=== PATIENT | female | born 1975 | race Caucasian/White ===

== ENCOUNTER 2021-08-15 13:39 | Emergency (ER) | payer MEDICAID, SELFPAY ==
[2021-08-15 13:44] VITALS: BP 157/98; PULSE 84; RESP 16; TEMP 36.9; O2SAT 98; BMI 32.4
--- NOTE | 2021-08-15 14:02 | ED_ITS ---
HPI - Dental/Oral General: Chief complaint: Dental/Oral Stated complaint: Mouth and gum pain Time Seen by Provider: 08/15/21 13:48 History of Present Illness: Patient is a 46-year-old female comes to the ED with dental pain. Pain started several days ago. She has had this dental pain before and has not seen a dentist for yet. Pain is in the right upper and lower side of mouth. Pain rated a 7 out of 10. She is new to the area and is currently in the process of getting set up with dental insurance and calling around dental offices to get scheduled for an appointment. Associated symptoms: Denies fever(s) or odynophagia Review of Systems Const: Denies: fever(s), chills or fatigue Eyes: Denies: change in vision or eye discomfort ENMT: Reports: dental pain (right side); Denies: throat pain, odynophagia, nasal discharge or nasal congestion Card: Denies: chest pain, palpitations, edema, swelling of feet/ankles, dyspnea on exertion or orthopnea Resp: Denies: dyspnea, productive cough or non-productive cough GI: Denies: abdominal pain, nausea, vomiting, diarrhea, constipation or hematochezia : Denies: flank pain, dysuria or hematuria Musc: Denies: neck pain, back pain or extremity swelling Skin/Breast: Denies: rash or new lesions Neuro: Denies: headache(s), numbness in extremities or weakness in extremities PFS ED PFSH: Medical History No pertinent family history Psychiatric care Surgical History No pertinent past surgical history Physical Exam Const: COMMON NORMALS: no acute distress, patient oriented x3 and alert GENERAL APPEARANCE: cooperative and comfortable HENMT: COMMON NORMALS: normocephalic HEAD & SCALP: normocephalic MOUTH: Normal oral and palatal mucosa present TEETH & GINGIVA: Yes caries (Multiple dental caries on the right upper and lower molars.), Yes poor dentition and Yes other (Right upper and lower molars-gingival edema noted) THROAT: posterior oropharynx normal and uvula midline Neck/C-Spine: COMMON NORMALS: supple GENERAL: Yes normal visual inspection Resp: COMMON NORMALS: normal respiratory effort, No retractions, No use of accessory muscles and clear to auscultation bilaterally AUSCULTATION: clear to auscultation bilaterally Cardio: COMMON NORMALS: regular rate, regular rhythm, S1 normal heart sound present, S2 normal heart sound present, No gallops present (Cardio), No clicks present (Cardio), No murmurs present (Cardio) and Peripheral pulses 2+ throughout RATE: regular rate RHYTHM: regular rhythm HEART SOUNDS: S1 normal heart sound present and S2 normal heart sound present PERIPHERAL PULSES: Peripheral pulses 2+ throughout GI: COMMON NORMALS: Normal to inspection, nondistended, normoactive bowel sounds present, Soft to palpation, non-tender and no masses PALPATION: Yes Soft to palpation : COMMON NORMALS: Yes no CVA tenderness BLADDER/KIDNEY EXAM: Yes no CVA tenderness Back/Pelvis: COMMON NORMALS: no CVA tenderness Extremity: COMMON NORMALS: normal to inspection Neuro: COMMON NORMALS: patient oriented x3 and moves all extremities SENSORIUM/ORIENTATION: Yes alert Skin: GENERAL SKIN EXAM: dry skin Course Vital Signs: Vital signs: Vital Signs Temperature 98.5 F 08/15/21 13:44 Pulse Rate 84 08/15/21 13:44 Respiratory Rate 16 08/15/21 13:44 Blood Pressure 157/98 08/15/21 13:44 Pulse Oximetry 98 08/15/21 13:44 [facility] - Dental/Oral Medical Decision Making Patient is a 46-year-old female comes to the ED with dental pain. Patient has multiple dental caries and poor dentition. Vitals are stable and patient appears nontoxic and in no acute distress or pain. Gingival edema around the right upper and lower molars. Patient diagnosed with pain due to dental caries and was discharged home with a prescription for clindamycin and ibuprofen 800 mg. She was told to contact the dentist and set up an appointment with them for further evaluation. Return to ED precautions given. Patient understood agree with plan. Discharge Plan Discharge Patient Disposition: Home Clinical Impression: Pain due to dental caries Condition: Stable Prescriptions: New clindamycin HCl 150 mg capsule 300 mg PO QID 7 Days Qty: 56 0RF ibuprofen 800 mg tablet 800 mg PO Q8H PRN (Reason: pain) Qty: 20 0RF Discharge Orders: Discharge ED (Routine); Ordered 08/15/21 Ordered By: Doc Stovall Discharge Diet: Regular Discharge Activity: Increase activity as tolerated Patient Instructions: Dental Caries (Cavities) Activity Restrictions/Additional Instructions: Follow-up with dentist as soon as possible to have your dental pain treated. Take medications as prescribed. Return to the ER or your medical provider if condition worsens. Please read and understand discharge instructions. Thank you for choosing [facility] for your healthcare needs today. Please realize this is an emergency room and that we are providing you with a medical screening exam and this may not be complete and all inclusive of all the testing and or work up that you may need to determine your ailment or severity of your illness. It is very important that you follow up as instructed or that you return to the Emergency Department should you have concerns or if your condition changes or worsens in any way. Coding Level of Care Code ED Finance Mgr for Nessa Harden Exam Comprehensive
[2021-08-15] MEDS: HYDROcodone-acetaminophen 7.5-325 mg Tablet 1 TAB PO (14:36)
== END 2021-08-15 14:55 | disposition home or self-care (01) ==
PROVIDERS: Emergency Provider Physician Assistant
DX: K02.9 Dental caries, unspecified (principal)
CPT/HCPCS: 99283

== ENCOUNTER 2022-05-12 04:28 | Inpatient (IN) | payer MEDICAID, SELFPAY ==
--- NOTE | 2022-05-12 04:30 | W.ED.PSYCHS ---
HPI - Psych General: Chief Complaint: Psychiatric Symptoms Stated Complaint: Hallucinations/ETOH/Drugs Time Seen by Provider: 05/12/22 04:30 Source: patient and EMS Mode of arrival: EMS Limitations: no limitations History of Present Illness: 46-year-old female has a history of alcohol abuse states she thinks she was given meth tonight as well states that she has been having hallucinations she states she is also had feelings of extreme paranoia she states that she was scared she may harm her self and want to get help tonight. Denies any worsening improving factors. Associated symptoms: Reports auditory hallucinations Review of Systems Const: Denies: fever(s), chills, body aches or change in appetite Eyes: Denies: blurry vision or eye discomfort ENMT: Denies: throat pain or dental pain Card: Denies: chest pain Resp: Denies: dyspnea GI: Denies: abdominal pain, nausea, vomiting or diarrhea : Denies: dysuria Musc: Denies: neck pain or back pain Skin/Breast: Denies: rash Neuro: Denies: headache(s) Psych: Reports: auditory hallucinations Yonis/Lymph: Denies: easy bruising All/Imm: Denies: urticaria PFSH ED PFSH: Medical History No pertinent family history Psychiatric care Surgical History No pertinent past surgical history Social History (Updated 05/12/22 @ 04:32 by Iris Greer MD) Alcohol intake: current Substance/Drug Use: current Physical Exam Const: COMMON NORMALS: no acute distress, patient oriented x3 and healthy appearing HENMT: COMMON NORMALS: normocephalic and atraumatic HEAD & SCALP: normocephalic and atraumatic Eye: COMMON NORMALS: Equal, round and reactive pupils present and EOMs intact bilaterally PUPIL: Yes Equal, round and reactive pupils present Neck/C-Spine: COMMON NORMALS: full ROM and supple Chest: COMMONS NORMALS: normal inspection of the chest and normal palpation of entire chest wall Resp: COMMON NORMALS: normal respiratory effort, No retractions, No use of accessory muscles and clear to auscultation bilaterally AUSCULTATION: clear to auscultation bilaterally Cardio: COMMON NORMALS: regular rate, regular rhythm and No murmurs present (Cardio) RATE: regular rate RHYTHM: regular rhythm GI: COMMON NORMALS: Normal to inspection, nondistended, normoactive bowel sounds present, Soft to palpation, non-tender and no masses PALPATION: Yes Soft to palpation Extremity: COMMON NORMALS: normal to inspection and full ROM Neuro: COMMON NORMALS: patient oriented x3, moves all extremities and no focal motor deficits Psych: COMMON NORMALS: mental status grossly normal, Normal thought process present and cooperative THOUGHT PROCESS: Normal thought process present THOUGHT CONTENT: Yes Hallucination(s) present Skin: COMMON NORMALS: no rashes or lesions noted and no wounds GENERAL SKIN EXAM: no rashes or lesions noted Course Vital Signs: Vital signs: Vital Signs Temperature 98.2 F 05/12/22 04:31 Pulse Rate 105 H 05/12/22 04:31 Respiratory Rate 20 H 05/12/22 04:31 Blood Pressure 155/105 05/12/22 04:31 Pulse Oximetry 98 05/12/22 04:31 Oxygen Delivery Me thod 05/12/22 04:31 [facility] - Psych Medical Decision Making Patient presents here with hallucinations patient is also had drug abuse and alcohol use patient voluntarily went to be admitted for hallucinations spoke to psychiatrist will admit to the psych subramanian. Discharge Plan Discharge Clinical Impression: Auditory hallucination, Alcohol abuse, Drug use Prescriptions: No Action ibuprofen 800 mg tablet 800 mg PO Q8H PRN (Reason: pain) Qty: 20 0RF Coding Level of Care Code ED Welding Process Specialist for Chg Fwd Exam Comprehensive
[2022-05-12 04:31] VITALS: BP 155/105; PULSE 105; RESP 20; TEMP 36.8; O2SAT 98; BMI 29.2
[2022-05-12 04:46] LABS: Basophils % 0.4 %; Nucleated Red Blood Cells % 0 %; Red Cell Distribution Width 16.2 % (12.1-15.1)
[2022-05-12] MEDS: LORazepam 1 mg Tablet 2 MG PO (04:54)
[2022-05-12 05:07] LABS: Eosinophils % 0.3 %; Hematocrit 37.4 % (37.0-47.0); Lymphocytes # 1.7 10^3/uL (0.8-4.8); Mean Corpuscular HGB Conc 32.1 g/dL (30.0-36.0); Mean Corpuscular Hemoglobin 28.1 pg (28.0-34.0); Mean Corpuscular Volume 87.6 fl (81-99); Monocytes # 0.6 10^3/uL (0.2-0.9); Monocytes % 5.4 %; Neutrophils # 8.06 10^3/uL (1.8-7.7); Neutrophils % 77.5 %; Platelet Count 429 10^3/cmm (130-400); Red Blood Count 4.27 10^6/uL (4.1-5.3); White Blood Count 10.4 10^3/uL (4.0-10.0)
[2022-05-12 05:22] LABS: Alanine Aminotransferase 31 U/L (0-33); Albumin Level 4.6 g/dL (3.5-5.2); Alkaline Phosphatase 87 U/L (35-105); Anion Gap 19.5 (5-19); Aspartate Amino Transferase 35 U/L (0-32); Blood Urea Nitrogen 19 mg/dL (6-20); Calcium 9.3 mg/dL (8.5-10.5); Carbon Dioxide 23 mmol/L (22-29); Chloride 100 mmol/L (98-107); Globulin 3.9 g/dL (1.3-4.6); Glomerular Filtration Rate 66.8 mL/min (90-130); Glucose 144 mg/dL (65-115); Osmolality Calculated 293 mOsm/kg (285-295); Potassium 3.5 mmol/L (3.5-5.1); Sodium 139 mmol/L (136-145); Total Bilirubin 0.5 mg/dL (0.15-1.2); Total Protein 8.5 g/dL (6.6-8.7)
[2022-05-12 05:31] LABS: Acetaminophen < 5.0 ug/mL (10-30); Alcohol Level < 10 mg/dL (0-10); Salicylate < 0.3 mg/dL (3-10)
[2022-05-12 06:00] VITALS: BP 135/87; PULSE 90; RESP 17; TEMP 36.4; O2SAT 97
[2022-05-12] MEDS: multivitamin therapeutic Tablet 1 TAB PO (09:14)
[2022-05-12] MEDS: folic acid 1 mg Tablet PO (09:15)
[2022-05-12] MEDS: thiamine 100 mg Tablet PO (09:15)
--- NOTE | 2022-05-12 10:50 | PC.OT ---
OT Eval attempted - Patient asleep at time of evaluation, will attempt again later this day.
[2022-05-12] MEDS: hyDROXYzine 25 mg Capsule 50 MG PO (12:52)
[2022-05-12 14:00] VITALS: RESP 18
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
[2022-05-12] MEDS: LORazepam 2 mg Tablet PO ×2 (16:12→20:33)
[2022-05-12 19:01] LABS: Amphetamines Screen Urine Positive (Negative); Barbiturates Screen Urine Negative (Negative); Benzodiazepines Screen Urine Positive (Negative); Cocaine Screen Urine Negative (Negative); Opiate Screen Urine Negative (Negative); PCP Screen Urine Negative (Negative); THC Screen Urine Positive (Negative)
[2022-05-12] MEDS: nicotine 2 mg Gum BUCCAL (19:06)
[2022-05-13 06:00] VITALS: RESP 17
[2022-05-13] MEDS: folic acid 1 mg Tablet PO (09:36)
[2022-05-13] MEDS: thiamine 100 mg Tablet PO (09:37)
[2022-05-13] MEDS: multivitamin therapeutic Tablet 1 TAB PO (09:37)
[2022-05-13 14:00] VITALS: BP 142/74; PULSE 88; RESP 18; TEMP 37; O2SAT 91
--- NOTE | 2022-05-13 17:35 | W.PM.NPUPNS ---
Subjective NPU Subjective: Patient presented today reporting that he is doing a little better. She reports that she has been struggling with alcoholism for 30 years. She reports that she is starting to have really dark thoughts, hallucinations and struggling with discontinuing the alcohol and so she came to the hospital. She reports she is on the CIWA protocol and getting Ativan. She discussed being open to the possibility of agents for anxiety, but we began a discussion about those and to be consistent with her alcohol use disorder. Mental Status Exam MSE Comments: This is an overweight versus obese white female in hospital scrubs with a disheveled appearance and improving eye contact. No abnormal movements except for mild psychomotor retardation. Cooperative with exam in no acute distress. Speech was normal rate and volume. Her mood was described as a little better. Her affect was restricted in range and mood congruent. Her thought process was linear, logical and goal-directed. Her thought content showed no evidence of active homicidal or suicidal ideation. There was no clear evidence of delusional thinking today although she had reported feeling less paranoid, she denied auditory or visual hallucinations. Attention and concentration are intact and memory appeared mostly reliable, but never formally tested.. Her insight was poor. Her judgment was poor. Her impulse control was limited. Vitals/I&O/Wt Last Vital Signs Temp 98.6 F 05/13/22 20:11 Pulse 104 H 05/13/22 20:11 Resp 17 05/13/22 20:11 BP 128/74 05/13/22 20:11 Pulse Ox 96 05/13/22 20:11 O2 Del Method 05/13/22 20:11 Weight last 48 hrs Weight 81.828 kg Data NPU 05/12/22 04:35 05/12/22 04:35 A&P Assessment and plan (1) Depressed mood: (2) Auditory hallucination: (3) Alcohol abuse: Plan The patient is a 46-year-old white female with a history of alcohol abuse borderline personality methamphetamine abuse and depression currently reporting auditory hallucinations with significant alcohol use reported. The patient had reported desire to receive treatment for alcohol consumption. She would likely benefit from continued psychiatric hospitalization while closely monitoring for alcohol withdrawal. 1. CIWA protocol. 2 Consider the use of an SSRI to target anxiety and depression. Possibly consider Neurontin for withdrawal and anxiety. 3. Recommend sober living treatment at the highest level of care to which the patient is willing to commit. 4. Continue every 15 minute checks for safety. 5. Engage patient in individual group and milieu therapy. Involuntary Hold Information 96 Hour Hold: 96 Hour Involuntary Admission: No Attestations NPU Medical Necessity Statement*: Inpatient hospitalization is medically necessary and the clinically appropriate intervention at this time. We will monitor medications and make changes as indicated. The likely length of stay is 2-4 days. Coding Level of Care Code Acute Wood Tile Installer for Nessa Harden Diagnoses Depressed mood R45.89 Auditory hallucination R44.0 Alcohol abuse F10.10
[2022-05-13] MEDS: hyDROXYzine 25 mg Capsule 50 MG PO (18:08)
[2022-05-13] MEDS: OLANZapine 5 mg ODT PO (18:08)
[2022-05-13] MEDS: blistex lip oint 7 gm Tube 1 APPLIC TOPICAL (18:32)
[2022-05-13 20:11] VITALS: BP 128/74; PULSE 104; RESP 17; TEMP 37; O2SAT 96
[2022-05-14 06:00] VITALS: RESP 17
[2022-05-14] MEDS: thiamine 100 mg Tablet PO (08:51)
[2022-05-14] MEDS: folic acid 1 mg Tablet PO (08:51)
[2022-05-14] MEDS: multivitamin therapeutic Tablet 1 TAB PO (08:51)
[2022-05-14] MEDS: OLANZapine 5 mg ODT PO (08:51)
[2022-05-14] MEDS: nicotine 2 mg Gum BUCCAL (08:51)
--- NOTE | 2022-05-14 08:52 | PC.NURSE ---
PRN ZYPREXA ZYDIS 5 MG GIVEN PO PER PT C/O STATED ANXIETY/AGITATION
--- NOTE | 2022-05-14 12:36 | W.PM.NPUPNS ---
Subjective NPU Subjective: Patient presented today reporting that she wanted to discharge. Main reason reportedly for that is that she feels her withdrawal has included and she was safe and better. We had a long discussion about the importance of her not just making it in withdrawal but to be functional and capable of maintaining her sobriety to which she agreed. We discussed her meeting with the treatment team the morning and coming up with names of programs that she could at the very least get on their lists. Mental Status Exam MSE Comments: This is an overweight versus obese white female in hospital scrubs with a disheveled appearance and improving eye contact. No abnormal movements. Cooperative with exam in no acute distress. Speech was normal rate and volume. Her mood was described as better. Her affect was congruent. Her thought process was linear, logical and goal-directed. Her thought content showed no evidence of active homicidal or suicidal ideation. There was no clear evidence of delusional thinking today although she had reported feeling less paranoid, she denied auditory or visual hallucinations. Attention and concentration are intact and memory appeared mostly reliable, but never formally tested. Her insight and judgment were poor but improving. Her impulse control was limited. Vitals/I&O/Wt Last Vital Signs Temp 98.6 F 05/13/22 20:11 Pulse 104 H 05/13/22 20:11 Resp 17 05/14/22 06:00 BP 128/74 05/13/22 20:11 Pulse Ox 96 05/13/22 20:11 O2 Del Method 05/13/22 20:11 Weight last 48 hrs Weight 81.828 kg Data NPU 05/12/22 04:35 05/12/22 04:35 A&P Assessment and plan (1) Depressed mood: (2) Auditory hallucination: (3) Alcohol abuse: Plan The patient is a 46-year-old white female with a history of alcohol abuse borderline personality methamphetamine abuse and depression currently reporting auditory hallucinations with significant alcohol use reported. The patient had reported desire to receive treatment for alcohol consumption. She would likely benefit from continued psychiatric hospitalization while closely monitoring for alcohol withdrawal. 1. CIWA protocol. 2 Consider the use of an SSRI to target anxiety and depression. Start Neurontin 100 mg p.o. 3 times daily 3. Recommend sober living treatment at the highest level of care to which the patient is willing to commit. 4. Continue every 15 minute checks for safety. 5. Engage patient in individual group and milieu therapy. Involuntary Hold Information 96 Hour Hold: 96 Hour Involuntary Admission: No Attestations NPU Medical Necessity Statement*: Inpatient hospitalization is medically necessary and the clinically appropriate intervention at this time. We will monitor medications and make changes as indicated. The likely length of stay is 1-3 days. Coding Level of Care Code Acute Materials Management Supervisor for Budg Fwd Diagnoses Depressed mood R45.89 Auditory hallucination R44.0 Alcohol abuse F10.10
[2022-05-14 14:00] VITALS: PULSE 116; RESP 18; TEMP 36.6; O2SAT 94
[2022-05-14] MEDS: hyDROXYzine 25 mg Capsule 50 MG PO (18:00)
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
[2022-05-14] MEDS: acetaminophen 325 mg Tablet 650 MG PO (18:31)
[2022-05-14 19:56] VITALS: BP 143/87; PULSE 98; RESP 16; TEMP 36.9; O2SAT 99
[2022-05-14] MEDS: trazodone 50 mg Tablet PO (19:57)
[2022-05-15 06:00] VITALS: BP 112/76; PULSE 99; RESP 17; TEMP 36.6; O2SAT 100
[2022-05-15] MEDS: gabapentin 100 mg Capsule PO ×2 (08:44→13:44)
[2022-05-15] MEDS: thiamine 100 mg Tablet PO (08:44)
[2022-05-15] MEDS: folic acid 1 mg Tablet PO (08:44)
[2022-05-15] MEDS: multivitamin therapeutic Tablet 1 TAB PO (08:44)
[2022-05-15] MEDS: hyDROXYzine 25 mg Capsule 50 MG PO (10:17)
[2022-05-15] MEDS: nicotine 2 mg Gum BUCCAL (11:28)
[2022-05-15] MEDS: OLANZapine 5 mg ODT PO (12:13)
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
[2022-05-15 12:34] VITALS: BP 112/76; PULSE 99; RESP 17; TEMP 36.6; O2SAT 100
== END 2022-05-15 13:50 | disposition home or self-care (01) | DRG 999 ==
LOC: ER 05:24 → NP 05:25
PROVIDERS: Admitting Provider Psychiatry & Neurology Psychiatry; Emergency Provider Emergency Medicine; Visit Provider Psychiatry & Neurology Psychiatry
DX: F15.151 Other stimulant abuse with stimulant-induced psychotic disorder with hallucinations (principal); F10.139 Alcohol abuse with withdrawal, unspecified; Y90.0 Blood alcohol level of less than 20 mg/100 ml; F32.A Depression, unspecified; F41.9 Anxiety disorder, unspecified; F60.3 Borderline personality disorder; F17.200 Nicotine dependence, unspecified, uncomplicated; Z62.810 Personal history of physical and sexual abuse in childhood; Z62.811 Personal history of psychological abuse in childhood; Z89.021 Acquired absence of right finger(s)
CPT/HCPCS: 80053; 80306; 80307; 85025; 97150; 97165; 99285

== ENCOUNTER → 2022-07-05 08:26 | Outpatient (BNVA) | payer MEDICAID, SELFPAY | PROVIDERS: Visit Provider Family Medicine | DX: R32 Unspecified urinary incontinence (principal); M54.2 Cervicalgia; F10.20 Alcohol dependence, uncomplicated; M25.551 Pain in right hip; K21.9 Gastro-esophageal reflux disease without esophagitis; G54.6 Phantom limb syndrome with pain; J30.2 Other seasonal allergic rhinitis; F41.9 Anxiety disorder, unspecified; R45.89 Other symptoms and signs involving emotional state; N39.3 Stress incontinence (female) (male) | CPT/HCPCS: 80053; 80061; 81000; 85025 ==

== ENCOUNTER 2022-08-05 17:20 | Emergency (ER) | payer MEDICAID, SELFPAY ==
[2022-08-05 17:41] VITALS: BP 175/130; PULSE 87; RESP 18; TEMP 36.7; O2SAT 96; BMI 34.3
--- NOTE | 2022-08-05 18:51 | ED_ITS ---
HPI - Dental/Oral General: Chief complaint: Dental/Oral Stated complaint: Mouth Pain\Hip Pain Time Seen by Provider: 08/05/22 18:49 History of Present Illness: 47-year-old female comes in today for complaints of left jaw pain. Patient reports that the pain starts in her lower jaw and radiates up into her left yazidi. Patient reports ice to the area seems to alleviate the discomfort. Patient appears nontoxic. Patient appears in no acute distress. Patient reports she had 3 teeth removed from the left side of her jaw about 1 month ago. Patient appears nontoxic. Patient appears in no acute distress. Associated symptoms: Denies fever(s) Review of Systems General: Reports: 10 or more systems reviewed and unremarkable except in HPI and below Const: Denies: fever(s) ENMT: Reports: dental pain Card: Denies: chest pain Resp: Denies: dyspnea Musc: Denies: neck pain Skin/Breast: Denies: rash PFSH ED PFSH: Medical History Alcohol use disorder, severe, dependence Nicotine dependence, cigarettes, uncomplicated No pertinent family history Post-traumatic stress disorder, chronic Psychiatric care Seasonal allergies Surgical History No pertinent past surgical history Family History Brother Cancer leukemia Family/Other Cancer cervical--maternal Family/Other Cancer paternal--ovarian Other Dementia Diabetes Hyperlipidemia Hypertension Lung disease Psychiatric illness Stroke Denies family history of CAD (coronary artery disease) Clotting disorder Chronic kidney disease (CKD) Anesthesia complication Bleeding disorder Social History Smoking and tobacco status: current every day smoker cigarettes [ Other cigarette details: 1/2 PPD x 4yrs] Alcohol intake: current Lives independently: Yes Household members: significant other Housing: House Marital status: / Number of children: 3 Highest education level completed: Associate Degree: Occupational, Technical, Vocational Program service: No Current occupational status: disabled Current gender identity: Female Elli/Nondenominational: Congregational Special elli needs: No Agree to transfusion: Yes Financial difficulty paying for basics: Hard Physical Exam Const: COMMON NORMALS: alert HENMT: COMMON NORMALS: normocephalic HEAD & SCALP: normocephalic MOUTH: Normal oral and palatal mucosa present TEETH & GINGIVA: no abnormal tooth and associated gingiva Neck/C-Spine: COMMON NORMALS: full ROM Resp: COMMON NORMALS: normal respiratory effort and clear to auscultation bilaterally AUSCULTATION: clear to auscultation bilaterally Cardio: COMMON NORMALS: regular rate and regular rhythm RATE: regular rate RHYTHM: regular rhythm Extremity: COMMON NORMALS: normal to inspection Neuro: SENSORIUM/ORIENTATION: Yes alert Skin: COMMON NORMALS: turgor normal GENERAL SKIN EXAM: turgor normal Course Vital Signs: Vital signs: Vital Signs Temperature 98.0 F 08/05/22 17:41 Pulse Rate 87 08/05/22 17:41 Respiratory Rate 16 08/05/22 18:54 Blood Pressure 164/105 08/05/22 18:54 Pulse Oximetry 96 08/05/22 18:54 Oxygen Delivery Me thod 08/05/22 18:54 MDM - Dental/Oral Medical Decision Making 47-year-old female comes in today for complaints of left jaw pain. Patient had 3 teeth removed on the left side of her jaw approximately 2 to 3 weeks ago. On exam well-healed mouth was noted. No signs of significant redness or swelling was noted. Tympanic membrane was normal. Differential diagnosis includes dental abscess, odontalgia, trigeminal neuralgia. Suspect patient probably has some mild trigeminal neuralgia may be from her recent dental procedure. We will go ahead and cover with a dose of steroid dexamethasone 10 mg and cover with hydrocodone for pain. Patient can continue with ice to the area for her comfort. Courage plenty of fluids and follow-up with primary care or dentist. Patient was covered for a possible infection with Augmentin 1 tablet twice a day for 5 days. Patient and family both reported understanding of care plan and need for return for worsening symptoms. Discharge Plan Discharge Patient Disposition: Home Clinical Impression: Atypical odontalgia, Trigeminal neuralgia pain Condition: Stable Prescriptions: New amoxicillin-pot clavulanate 875-125 mg tablet 1 tab PO BID Qty: 10 0RF hydrocodone-acetaminophen 5-325 mg tablet 1 tab PO Q8H PRN (Reason: pain (scale score 7-10)) Qty: 7 0RF No Action gabapentin 300 mg capsule 300 mg PO TID Qty: 90 2RF Rx Instructions: Take one capsule three times per day omeprazole 40 mg capsule,delayed release(DR/EC) 40 mg PO DAILY Qty: 90 0RF diphenhydramine HCl [Allergy (diphenhydramine)] 25 mg capsule 25 mg PO TID PRN fluticasone propionate [Flonase Allergy Relief] 50 mcg/actuation spray,suspension 2 spray intranasal DAILY Qty: 16 0RF Rx Instructions: administer into each nostril cetirizine [Zyrtec] 10 mg tablet 10 mg PO DAILY PRN (Reason: allergy symptoms) Qty: 30 1RF albuterol sulfate 90 mcg/actuation HFA aerosol inhaler 1 inh inhalation QID PRN (Reason: shortness of breath or wheezing) Qty: 8.5 0RF trazodone 50 mg tablet 50 mg PO BEDTIME PRN (Reason: Sleep) 30 Days Qty: 30 1RF bupropion HCl [Wellbutrin XL] 300 mg tablet extended release 24 hr 300 mg PO QAM Qty: 30 0RF ondansetron HCl 4 mg tablet 4 mg PO Q8H PRN (Reason: nausea and vomiting) Qty: 14 0RF ibuprofen 600 mg tablet 600 mg PO TID PRN (Reason: pain) Qty: 60 0RF Vitamin B-1 (mononitrate) 100 mg Tablet 100 mg PO DAILY 30 Days Qty: 30 1RF Discharge Orders: Discharge ED (Routine); Ordered 08/05/22 Ordered By: Perry Jones Referrals: Zaire Mendoza MD [Primary Care Provider] - Discharge Diet: Usual diet Discharge Activity: Increase activity as tolerated Patient Instructions: Toothache (ED) Activity Restrictions/Additional Instructions: Drink plenty of water. Use acetaminophen and ibuprofen to control pain. Use hydrocodone for severe pain. Use ice or heat for further pain relief. Follow- up with primary care for further instructions. Return to ED for new concerns. You given a shot a steroids to help with the pain and inflammation. He also started on some antibiotics for possible secondary infection from your dental procedure. And you were given some hydrocodone for severe pain. Coding Level of Care Code ED Global Marketing Intern for Nessa Harden
[2022-08-05 18:54] VITALS: BP 164/105; RESP 16; O2SAT 96
[2022-08-05] MEDS: dexamethasone 10 mg/mL INJ IM (19:39)
[2022-08-05] MEDS: amoxicillin-clav 875-125 mg Tablet 1 TAB PO (19:39)
[2022-08-05] MEDS: HYDROcodone-acetaminophen 5-325 mg Tablet 1 TAB PO (19:39)
[2022-08-05 19:43] VITALS: BP 160/105; PULSE 77; O2SAT 96
== END 2022-08-05 19:45 | disposition home or self-care (01) ==
PROVIDERS: Emergency Provider Nurse Practitioner Family; PCP Family Medicine
DX: G50.0 Trigeminal neuralgia (principal); K08.89 Other specified disorders of teeth and supporting structures; F17.210 Nicotine dependence, cigarettes, uncomplicated
CPT/HCPCS: 96372; 99284; J1100

== ENCOUNTER 2022-08-10 08:41 | Outpatient (CLI) | payer MEDICAID, SELFPAY ==
--- NOTE | 2022-08-10 08:55 | XR_ITS ---
WS: [id number] EXAMINATION: XR lumbar spine min 4V [id number] L-SPINE : 5 views REASON FOR EXAM: M54.16 - Radiculopathy, lumbar region COMPARISON: None available. ORDER DATE: 08/10/2022 9:10 AM FINDINGS: There is a 25% anterior wedge compression in the L1 vertebral body that appears chronic. Os teophyte present anteriorly. Small Schmorl's node defects at the upper endplates of L2 and L3. Lumbar ization of S1. The lumbar vertebral bodies and the disc spaces are normal in width. XR/XR lumbar spine min 4V [id number] IMPRESSION: Old compression fracture change at L1.
--- NOTE | 2022-08-10 08:55 | XR_ITS ---
WS: [id number] EXAMINATION: XR hip BI 3-4V wo/w pel [id number] REASON FOR EXAM: M25.559 - Pain in unspecified hip COMPARISON: None available. ORDER DATE: 08/10/2022 9:10 AM TECHNIQUE: Frontal internal/external rotation views of both hips were obtained. X-RAY FINDINGS: There are no fractures or dislocations. Normal motion with internal/external rotation is present. No degenerative changes. XR/XR hip BI 3-4V wo/w pel [id number] IMPRESSION: 1. No fractures or dislocations 2. Normal motion with internal/external rotation.
== END 2022-08-10 08:42 | disposition home or self-care (01) ==
LOC: RAD 08:44
PROVIDERS: PCP Family Medicine; Visit Provider Anesthesiology Pain Medicine
DX: M25.559 Pain in unspecified hip (principal); M54.16 Radiculopathy, lumbar region
CPT/HCPCS: 72110; 73522

== ENCOUNTER → 2022-09-06 15:16 | Outpatient (BNVA) | payer OTHER, SELFPAY | PROVIDERS: PCP Family Medicine; Visit Provider Nurse Practitioner Psychiatric/Mental Health | DX: Z79.899 Other long term (current) drug therapy (principal) | CPT/HCPCS: 80053; 80307; 83036 ==

== ENCOUNTER → 2023-02-06 10:36 | Outpatient (BNVA) | payer MEDICAID, SELFPAY | PROVIDERS: PCP Family Medicine; Visit Provider Nurse Practitioner Psychiatric/Mental Health | DX: Z79.899 Other long term (current) drug therapy (principal); Z03.89 Encounter for observation for other suspected diseases and conditions ruled out; F41.1 Generalized anxiety disorder; F10.20 Alcohol dependence, uncomplicated; F43.12 Post-traumatic stress disorder, chronic; F17.210 Nicotine dependence, cigarettes, uncomplicated | CPT/HCPCS: 80053; 80061; 80307; 81003; 83036 ==

== ENCOUNTER → 2023-03-05 14:42 | Outpatient (BNVA) | payer MEDICAID, SELFPAY | PROVIDERS: PCP Family Medicine; Visit Provider Nurse Practitioner Psychiatric/Mental Health | DX: F41.1 Generalized anxiety disorder (principal); Z79.899 Other long term (current) drug therapy; F10.20 Alcohol dependence, uncomplicated; F43.12 Post-traumatic stress disorder, chronic; F17.210 Nicotine dependence, cigarettes, uncomplicated | CPT/HCPCS: 80053; 80306 ==

== ENCOUNTER 2023-12-03 07:40 | Inpatient (IN) | payer MEDICARE, MEDICAID, SELFPAY ==
[2023-12-03] VITALS (180 sets, daily range): BP systolic 103–170; BP diastolic 63–123; PULSE 40–107; RESP 8–34; TEMP 36.6; O2SAT 64–100; BMI 31.7
--- NOTE | 2023-12-03 07:49 | ED_ITS ---
HPI - Animal Bite 2 General: Chief Complaint: Extremity Injury, Upper Stated Complaint: snake bite, swelling Time Seen by Provider: 12/03/23 07:43 Source: patient Mode of arrival: ambulatory History of Present Illness: 48-year-old female presents emergency ro om stating that she was bit by a snake and has swelling in her right arm. She states it happened this morning. She denies fever sweats chills. She has deformity to her right hand there is significant amount of swelling to the arm extending above the elbow. She reports originally she was bitten around 5 p.m. last night. Patient is behaving erratically smells of alcohol. Patient identifies the bite sherlyn is overlying the second metacarpal. On the dorsal surface. However there are no identifiable puncture wounds there. There is a small irritated area but does not appear to be a puncture wound MD complaint: animal bite (Snakebite) Animal: snake Mechanism: bite Location - Extremities: Right: hand Associated symptoms: Deny bleeding, chills, cough, diaphoresis, erythema, fever(s), headache(s), numbness, rash, short of breath, syncope, weakness or wound drainage Review of Systems 2 Const: Denies: fever(s), chills or diaphoresis Card: Denies: syncope Neuro: Denies: headache(s) PFSH ED 2 PFSH: Medical History (Updated 12/03/23 @ 13:13 by Luis Glasgow MD) Hypertension Generalized anxiety disorder Post-traumatic stress disorder, chronic Nicotine dependence, cigarettes, uncomplicated Seasonal allergies Alcohol use disorder, severe, dependence No pertinent family history Psychiatric care Surgical History No pertinent past surgical history Family History Brother Cancer leukemia Family/Other Cancer cervical--maternal Family/Other Cancer paternal--ovarian Other Dementia Diabetes Hyperlipidemia Hypertension Lung disease Psychiatric illness Stroke Denies family history of CAD (coronary artery disease) Clotting disorder Chronic kidney disease (CKD) Anesthesia complication Bleeding disorder Social History Smoking and tobacco/nicotine status: current every day tobacco/nicotine user cigarettes [ Other cigarette details: 1/2 PPD x 4yrs, 2/week now] Alcohol intake: current Alcohol intake frequency: few times a week Substance/Drug Use: former Lives independently: Yes Household members: significant other Housing: House Marital status: / Number of children: 3 Highest education level completed: Associate Degree: Occupational, Technical, Vocational Program service: No Current occupational status: disabled Do you think of yourself as: Straight/Heterosexual Current gender identity: Female Elli/Zoroastrianism: Spiritism Special elli needs: No Agree to transfusion: Yes Physical Exam 2 Const: COMMON NORMALS: alert GENERAL APPEARANCE: cooperative and comfortable ORIENTATION/CONSCIOUSNESS: Yes awake HENMT: COMMON NORMALS: normocephalic, atraumatic and hearing grossly normal bilaterally HEAD & SCALP: normocephalic and atraumatic Resp: COMMON NORMALS: normal respiratory effort, No retractions, No use of accessory muscles and clear to auscultation bilaterally AUSCULTATION: clear to auscultation bilaterally Cardio: COMMON NORMALS: regular rate, regular rhythm and No murmurs present (Cardio) RATE: regular rate RHYTHM: regular rhythm GI: COMMON NORMALS: Soft to palpation and No hepatosplenomegaly present A USCULTATION: Yes normoactive bowel sounds PALPATION: Yes Soft to palpation, No Tenderness to palpation present (GI), No Guarding due to palpation present (GI) and Yes No hepatosplenomegaly present Extremity: OTHER: Significant amount of swelling to the right arm there is 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 Edema extends to the distal forearm proximal to the elbow. The area the patient refers to the bite is overlying the second metacarpal however it does not appear to be a snake bite there are no. Puncture wounds. In fact there does not appear to be a puncture wound at all. Overlying the dorsum of the fifth metatarsal there is an open wound approximately 5 mm with a eschar in place. It is a full-thickness of the skin. Neuro: SENSORIUM/ORIENTATION: Yes alert Psych: ATTITUDE: Yes agitated ACTIVITY/MOTOR BEHAVIOR: Yes psychomotor agitation and Yes hyperactivity SPEECH: Yes excessive and Yes rapid Skin: COMMON NORMALS: no rashes or lesions noted GENERAL SKIN EXAM: no rashes or lesions noted and no erythema Course 2 Vital Signs: Vital signs: Vital Signs Temperature 98 F 12/03/23 07:56 Pulse Rate 97 12/03/23 13:00 Respiratory Rate 25 H 12/03/23 13:00 Blood Pressure 103/89 12/03/23 13:00 Pulse Oximetry 91 12/03/23 13:00 Oxygen Delivery Me thod Room Air 12/03/23 12:55 Oxygen Flow Rate 2 12/03/23 11:55 MDM - Animal Bite Medical Decision Making There are 2 areas of irritation although they are fairly widely spaced I do not believe they look like puncture sanches. There is no ecchymosis or abnormality around them. There is extensive swelling of the forearm she has a small excoriated area over the fifth metacarpal I suspect this may be cellulitis radiology rec feels it was cellulitis as well clinically examined her several times she is tender in the hand but is not pain disproportionate to exam I would lead me believe she has an active compartment syndrome. We did call poison control, they did not recommend CroFab for this at this point. Will admit patient started on IV antibiotics for cellulitis discussed with Ortho they will follow along as well. Medical Records I reviewed the patient's medical records. Lab Data I reviewed the patient's lab results. 12/03/23 08:06 12/03/23 08:06 Radiology Impressions Upper Extremity CTA 12/03/23 10:19 IMPRESSION: 1. Diffuse cellulitis extending from the upper arm involving the forearm extending into the hand and distal phalanges. 2. Inflammatory stranding and edema extends into the deep intramuscular soft tissues in the upper arm, forearm, and hand. Patient at risk for compartment syndrome. Edema worse in the forearm and dorsal phalanges. 3. No evidence of drainable abscess or fluid collection. 4. Vessels appear patent. Laboratory Results WBC 8.94 10^3/uL (3.29-11.43) 12/03/23 08:06 RBC 4.29 10^6/uL (3.85-5.65) 12/03/23 08:06 Hgb 12.10 g/dL (11.27-16.99) 12/03/23 08:06 Hct 37.3 % (36-47) 12/03/23 08:06 MCV 86.9 fl (85-98) 12/03/23 08:06 MCH 28.2 pg (27-33) 12/03/23 08:06 MCHC 32.4 g/dL (30-55) 12/03/23 08:06 RDW 14.3 % (12.1-15.1) 12/03/23 08:06 Plt Count 426 10^3/cmm (157-399) H 12/03/23 08:06 MPV 8.7 fL (7.4-10.4) 12/03/23 08:06 Neut % (Auto) 57.9 % 12/03/23 08:06 Lymph % (Auto) 28.9 % 12/03/23 08:06 [place] % (Auto) 9.8 % 12/03/23 08:06 Eos % (Auto) 2.7 % 12/03/23 08:06 Baso % (Auto) 0.4 % 12/03/23 08:06 Neut # (Auto) 5.17 10^3/uL (1.8-7.7) 12/03/23 08:06 Lymph # (Auto) 2.6 10^3/uL (0.8-4.8) 12/03/23 08:06 [place] # (Auto) 0.9 10^3/uL (0.2-0.9) 12/03/23 08:06 Eos # (Auto) 0.2 10^3/uL (0.0-0.8) 12/03/23 08:06 Baso # (Auto) 0.0 10^3/uL (0.0-0.1) 12/03/23 08:06 Nucleated RBC % (auto) 0 % 12/03/23 08:06 Nucleated RBCs # 0.0 /100WBC 12/03/23 08:06 Sodium 136 mmol/L (136-145) 12/03/23 08:06 Potassium 2.8 mmol/L (3.5-5.1) L* 12/03/23 08:06 Chloride 98 mmol/L (98-107) 12/03/23 08:06 Carbon Dioxide 20 mmol/L (22-29) L 12/03/23 08:06 Anion Gap 20.8 (5-19) H 12/03/23 08:06 BUN 11 mg/dL (6-20) 12/03/23 08:06 Creatinine 1.0 mg/dL (0.5-0.9) H 12/03/23 08:06 GFR Calculation 58.7 mL/min (90-130) L 12/03/23 08:06 Glucose 108 mg/dL (65-115) 12/03/23 08:06 Calculated Osmolality 282 mOsm/kg (285-295) L 12/03/23 08:06 Lactic Acid 2.2 mmol/L (0.5-2.2) 12/03/23 08:06 Lactic Acid (Sepsis) 1.1 mmol/L (0.5-2.2) 12/03/23 11:30 Calcium 8.8 mg/dL (8.5-10.5) 12/03/23 08:06 Magnesium 1.7 mg/dL (1.7-2.3) 12/03/23 08:06 Total Bilirubin 0.7 mg/dL (0.15-1.2) 12/03/23 08:06 AST 143 U/L (0-32) H 12/03/23 08:06 ALT 95 U/L (0-33) H 12/03/23 08:06 Alkaline Phosphatase 75 U/L (35-105) 12/03/23 08:06 Creatine Kinase 781 U/L (26-192) H* 12/03/23 08:06 Total Protein 7.3 g/dL (6.6-8.7) 12/03/23 08:06 Albumin 3.9 g/dL (3.5-5.2) 12/03/23 08:06 Globulin 3.4 g/dL (1.3-4.6) 12/03/23 08:06 Urine Color Yellow (Yellow) 12/03/23 12:45 Urine Appearance Slightly cloudy (CLEAR) 12/03/23 12:45 Urine pH 5 (5-7) 12/03/23 12:45 Ur Specific [place] 1.015 (1.005-1.030) 12/03/23 12:45 Urine Protein 1+ (Negative) H 12/03/23 12:45 Urine Glucose (UA) Norm (Normal) 12/03/23 12:45 Urine Ketones 1+ (Negative) H 12/03/23 12:45 Urine Blood 3+ (Negative) H 12/03/23 12:45 Urine Nitrate Positive (Negative) A 12/03/23 12:45 Urine Bilirubin Neg (Negative) 12/03/23 12:45 Urine Urobilinogen 1 mg/dL (Negative) H 12/03/23 12:45 Ur Leukocyte Esterase Trace (Negative) H 12/03/23 12:45 Urine RBC 0-4 /hpf (0-2) H 12/03/23 12:45 Urine WBC 5-10 /hpf (0-5) H 12/03/23 12:45 Ur Squamous Epith Cells 5-10 /hpf (0-5) H 12/03/23 12:45 Amorphous Sediment Not Reportable 12/03/23 12:45 Urine Bacteria 3+ /hpf (NONE) H 12/03/23 12:45 Urine Opiates Screen Positive ng/mL (Negative) H 12/03/23 12:45 Ur Barbiturates Screen Negative ng/mL (Negative) 12/03/23 12:45 Ur Phencyclidine Scrn Negative ng/mL (Negative) 12/03/23 12:45 Ur Amphetamines Screen Positive ng/mL (Negative) H 12/03/23 12:45 U Benzodiazepines Scrn Negative ng/mL (Negative) 12/03/23 12:45 Urine Cocaine Screen Positive ng/mL (Negative) H 12/03/23 12:45 U Marijuana (THC) Screen Positive ng/mL (Negative) H 12/03/23 12:45 Ethyl Alcohol 25 mg/dL (0-10) H 12/03/23 08:06 All radiology interpretation(s) finalized by discharge Discharge Plan Discharge Condition: Stable Prescriptions: No Action diphenhydramine HCl [Allergy (diphenhydramine)] 25 mg capsule 25 mg PO TID ondansetron HCl 4 mg tablet 4 mg PO Q8H PRN (Reason: nausea and vomiting) Qty: 14 0RF ibuprofen 400 mg tablet 400 mg PO BID PRN (Reason: pain) Qty: 60 0RF fluticasone propionate [Flonase Allergy Relief] 50 mcg/actuation spray,suspension 2 spray intranasal DAILY Qty: 16 0RF Rx Instructions: administer into each nostril clonidine HCl 0.1 mg tablet 0.1 mg PO BID PRN (Reason: alcohol withdrawal) Qty: 60 3RF gabapentin 300 mg capsule 300 mg PO TID Qty: 90 2RF hydroxyzine pamoate 50 mg capsule 50 mg PO BID PRN (Reason: anxiety) Qty: 180 2RF quetiapine [Seroquel XR] 50 mg tablet extended release 24 hr 50 mg PO .7 pm Qty: 30 3RF Rx Instructions: Take one tablet at 7 pm trazodone 50 mg tablet 50 mg PO DIRECTED PRN (Reason: insomnia) Qty: 60 4RF Rx Instructions: May take one tablet 30-60 min prior to bedtime as needed for sleep; May repeat if needed. naltrexone 50 mg tablet 50 mg PO QAM Ventolin HFA 90 mcg/actuation HFA aerosol inhaler 1 puff inhalation QID PRN (Reason: Shortness Of Breath) levocetirizine 5 mg tablet 5 mg PO DAILY Referrals: Zaire Mendoza MD [Primary Care Provider] - Coding Level of Care Code ED [employer] for Nessa Harden
[2023-12-03 08:41] LABS: Basophils % 0.4 %; Eosinophils # 0.2 10^3/uL (0.0-0.8); Eosinophils % 2.7 %; Hematocrit 37.3 % (36-47); Lymphocytes # 2.6 10^3/uL (0.8-4.8); Lymphocytes % 28.9 %; Mean Corpuscular HGB Conc 32.4 g/dL (30-55); Mean Corpuscular Hemoglobin 28.2 pg (27-33); Mean Corpuscular Volume 86.9 fl (85-98); Mean Platelet Volume 8.7 fL (7.4-10.4); Monocytes # 0.9 10^3/uL (0.2-0.9); Monocytes % 9.8 %; Neutrophils # 5.17 10^3/uL (1.8-7.7); Neutrophils % 57.9 %; Nucleated Red Blood Cells % 0 %; Platelet Count 426 10^3/cmm (157-399); Red Blood Count 4.29 10^6/uL (3.85-5.65); Red Cell Distribution Width 14.3 % (12.1-15.1); White Blood Count 8.94 10^3/uL (3.29-11.43)
[2023-12-03 08:57] LABS: Lactic Sepsis W/Reflex 2.2 mmol/L (0.5-2.2)
[2023-12-03 08:58] LABS: Alanine Aminotransferase 95 U/L (0-33); Albumin Level 3.9 g/dL (3.5-5.2); Alcohol Level 25 mg/dL (0-10); Alkaline Phosphatase 75 U/L (35-105); Anion Gap 20.8 (5-19); Aspartate Amino Transferase 143 U/L (0-32); Blood Urea Nitrogen 11 mg/dL (6-20); Calcium 8.8 mg/dL (8.5-10.5); Carbon Dioxide 20 mmol/L (22-29); Chloride 98 mmol/L (98-107); Creatinine Clr Calc Pharmacy 70.5351; Globulin 3.4 g/dL (1.3-4.6); Glomerular Filtration Rate 58.7 mL/min (90-130); Glucose 108 mg/dL (65-115); Osmolality Calculated 282 mOsm/kg (285-295); Sodium 136 mmol/L (136-145); Total Bilirubin 0.7 mg/dL (0.15-1.2); Total Protein 7.3 g/dL (6.6-8.7)
[2023-12-03 09:07] LABS: Creatine Phosphokinase 781 U/L (26-192); Potassium 2.8 mmol/L (3.5-5.1)
[2023-12-03] MEDS: potassium chloride oral liq 20 mEq/15 mL UDC 60 MEQ PO (09:21)
[2023-12-03] MEDS: tetanus-dipt-pertussis 0.5 mL SDV IM (09:23)
[2023-12-03] MEDS: morphine 4 mg/mL SDV 1 mL IVP (09:27)
--- NOTE | 2023-12-03 09:50 | PC.NURSE ---
After giving pt morphine IVP slow push for pain, a few moments later pt stated that she did not feel well. pt became bradycardic and diaphoretic and c/o nausea. dr frost notified. episode lasted for a few minutes and pt reported that the symptoms have passed. pt on continuous bedside monitoring at this time. pt breathing even and unlabored at this time with patent airway and even respirations.
--- NOTE | 2023-12-03 09:59 | PC.NURSE ---
poison control called and explained situation with pt of a possible snake bite. poison control staff recommended this nurse that pt have swollen extremity elevated, bedside monitoring on, and labs drawn. dr frost notified.
[2023-12-03 10:04] LABS: Reflex Lactate Order REFLEX LACTIC ORDERD
--- NOTE | 2023-12-03 10:19 | CT_ITS ---
WS: [id number] CTA UPPER EXTREMITY RIGHT INDICATION: Cellulitis. Possible snake bite. TECHNIQUE: Contrast-enhanced CTA of the RIGHT upper extremity. Coronal and sagittal reformatted image s. FINDINGS: Diffuse subcutaneous edema extending into the deep intramuscular soft tissues extending from the uppe r arm to the distal phalanges. Associated inflammatory stranding and edema. No evidence of drainable abscess or fluid collection. Findings are compatible with diffuse cellulitis. Infection and edema ext ends into the intramuscular soft tissues in the upper arm and forearm. Prominent edema within the patrick craig hand extending into the dorsal phalanges although no evidence of drainable abscess or fluid colle ction. RIGHT subclavian artery and vein are patent. Axillary and brachial artery are patent. Forearm vessels including the radial and ulnar artery are patent. Partially visualized RIGHT lung is well aerated. Slight subsegmental atelectasis RIGHT lower lobe par tially visualized. CT/[place] [id number] IMPRESSION: 1. Diffuse cellulitis extending from the upper arm involving the forearm exten ding into the hand and distal phalanges. 2. Inflammatory stranding and edema extends into the deep intramuscular soft t issues in the upper arm, forearm, and hand. Patient at risk for compartment syn drome. Edema worse in the forearm and dorsal phalanges. 3. No evidence of drainable abscess or fluid collection. 4. Vessels appear patent.
[2023-12-03] MEDS: piperacillin-tazobactam 3.375 GM in sodium chloride 0.9% (plus) 50 ML IV (10:27)
[2023-12-03] MEDS: iohexol 350 mg/mL 500 mL Btl (per mL) IV (11:17)
[2023-12-03 11:53] LABS: Lactic Acid level (Lactate) 1.1 mmol/L (0.5-2.2)
--- NOTE | 2023-12-03 12:49 | P.HP_ITS ---
Providers/Chief Complaint 2 Admitting Physician: Luis Glasgow MD Primary Care Provider: Zaire Mendoza MD Chief Complaint: snake bite, swelling History of Present Illness Hamida Holcomb is a 48 year old female presenting to the emergency department with complaints of upper extremity on the right being swollen. 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 She states she was out of woodpile, and got bit by a snake on the dorsal surface of the right hand around 5:51 PM. She reports she felt being struck, and saw the snake sliver off. She points to an area where 1 lesion as, and there is a small spot next to it which potentially could be an abrasion from a fainting. A second true puncture site is hard to delineate. She denies any fevers. She states the arm was swollen enough today she decided to come in. No vomiting, nausea. Is not sure what type of snake it was. The emergency department physician contacted poison control, and decision was made not to give CroFab. Patient reports no severe pain in her hand. She is able to move at all joints although this feels tight. She reports after being bitten she felt a little dizzy and that was another reason for coming in. She denies any dizziness currently. Patient reports she drinks quite a bit of alcohol, all the time in the form of vodka. She believes she might withdrawal while in the hospital. She is use methamphetamine, and often uses THC. Denies any IV drug use, or injection in the right arm. An abrasion is noted on the right hand, dorsal surface laterally that is approximately 1.5 cm across. She is not for sure how this occurred. Review of Systems 2 General: Reports: 10 or more systems reviewed and unremarkable except in HPI and below Card: Denies: chest pain Resp: Denies: dyspnea GI: Denies: abdominal pain, nausea or vomiting Medications/Allergies Home Medications Medication Instructions Recorded Confirmed Last Taken Type diphenhydramine HCl 25 mg capsule 25 mg PO TID PRN 07/20/22 03/06/23 Unknown History (Allergy (diphenhydramine)) ondansetron HCl 4 mg tablet 4 mg PO Q8H PRN nausea and 07/20/22 03/06/23 Unknown Rx vomiting #14 tabs erythromycin 5 mg/gram (0.5 %) eye 0.5 inch ophthalmic (eye) QID 7 03/06/23 03/06/23 Unknown Rx ointment (3.5 gram tube) days #3.5 grams albuterol sulfate 90 mcg/actuation See Rx Instructions .Route 04/24/23 Unknown Rx aerosol inhaler (Ventolin HFA) .COMPLEX #18 grams omeprazole 40 mg capsule,delayed See Rx Instructions .Route 05/21/23 Unknown Rx release .COMPLEX #30 caps fluticasone propionate 50 2 spray intranasal DAILY #16 grams 09/03/23 Unknown Rx mcg/actuation nasal spray,suspension (Flonase Allergy Relief) ibuprofen 400 mg tablet 400 mg PO BID PRN pain #60 tabs 09/03/23 Unknown Rx levocetirizine 5 mg tablet See Rx Instructions .Route 09/03/23 Unknown Rx .COMPLEX #30 tabs clonidine HCl 0.1 mg tablet 0.1 mg PO BID PRN alcohol 09/21/23 Unknown Rx withdrawal #60 tabs gabapentin 300 mg capsule 300 mg PO TID #90 caps 09/21/23 Unknown Rx hydroxyzine pamoate 50 mg capsule 50 mg PO BID PRN anxiety #180 caps 09/21/23 Unknown Rx naltrexone 50 mg tablet 50 mg PO .morning #30 tabs 09/21/23 Unknown Rx quetiapine 50 mg tablet,extended 50 mg PO .7 pm #30 tabs 09/21/23 Unknown Rx release 24 hr (Seroquel XR) trazodone 50 mg tablet 50 mg PO DIRECTED PRN insomnia 09/21/23 Unknown Rx #60 tabs Allergies Allergy/AdvReac Type Severity Reaction Status Date / Time No Known Allergies Allergy Verified 12/03/23 08:03 PFSH Acute 2 PFSH: Medical History (Updated 12/03/23 @ 13:13 by Luis Glasgow MD) Hypertension Generalized anxiety disorder Post-traumatic stress disorder, chronic Nicotine dependence, cigarettes, uncomplicated Seasonal allergies Alcohol use disorder, severe, dependence No pertinent family history Psychiatric care Surgical History No pertinent past surgical history Family History Brother Cancer leukemia Family/Other Cancer cervical--maternal Family/Other Cancer paternal--ovarian Other Dementia Diabetes Hyperlipidemia Hypertension Lung disease Psychiatric illness Stroke Denies family history of CAD (coronary artery disease) Clotting disorder Chronic kidney disease (CKD) Anesthesia complication Bleeding disorder Social History Smoking and tobacco/nicotine status: current every day tobacco/nicotine user cigarettes [ Other cigarette details: 1/2 PPD x 4yrs, 2/week now] Alcohol intake: current Alcohol intake frequency: few times a week Substance/Drug Use: former Lives independently: Yes Household members: significant other Housing: House Marital status: / Number of children: 3 Highest education level completed: Associate Degree: Occupational, Technical, Vocational Program service: No Current occupational status: disabled Do you think of yourself as: Straight/Heterosexual Current gender identity: Female Elli/Mosque: Judaism Special elli needs: No Agree to transfusion: Yes Vitals/I&O/Wt Last Vital Signs Temp 98 F 12/03/23 07:56 Pulse 81 12/03/23 11:40 Resp 15 12/03/23 11:40 BP 152/83 12/03/23 11:40 Pulse Ox 98 12/03/23 11:40 O2 Del Method Nasal Cannula 12/03/23 10:50 O2 Flow Rate 2 12/03/23 10:50 Weight last 48 hrs Weight 83.915 kg Physical Exam 2 Narrative: General exam is white female, very verbal, he uses her right upper extremity that is swollen to gesture during time of talking without any apparent pain. Occasionally some dystonic movements which she [id number] HEENT: Atraumatic normocephalic. Oropharynx clear Neck is supple no lymphadenopathy thyromegaly Cardiovascular regular rate and rhythm, without murmur Lungs clear no wheezing or crackles Abdomen is soft nontender with positive bowel sounds. No obvious organomegaly exam is deferred Extremities no cyanosis or clubbing. Right hand with the hand and arm is swollen up to about the elbow. Amputation of her second through fifth fingers slight erythema. An abrasion approximately 1.5 cm dorsal lateral hand. Possible puncture sherlyn closer to the thumb area where she indicates the most pain. Cap refill is intact. She moves at all joints. Radial pulse intact. Data 12/03/23 08:06 12/03/23 08:06 Other Labs: AST and ALT are 143 and 95 respectively. Alk phos and bilirubin are normal. Calcium and albumin are normal. CK 781. Alcohol level 25 Upper extremity CTA demonstrates possible cellulitis extending into the upper arm and forearm as well as the hand and distal phalanges. Inflammatory stranding and edema extends into the deep intramuscular tissues. There is no evidence of abscess. Vessels were patent. I reviewed this briefly as well. Blood cultures were drawn Micro: Microbiology 12/03/23 08:06 Blood Culture - Preliminary Blood SPECIMEN COLLECTED 12/03/23 08:06 Blood Culture - Preliminary Blood SPECIMEN COLLECTED A&P Assessment and plan (1) Cellulitis: Concern of cellulitis right upper extremity. Patient is confident that she was bitten by a snake. History was in question secondary to lack of clear puncture wounds and other comorbidities. Blood culture has been obtained which is appropriate Orthopedics consult to follow along for concern of development of compartment syndrome in the future Repeat CK which was slightly elevated tomorrow Vancomycin IV, dose adjustments per pharmacy as well as trough levels and close follow-up of creatinine Obtain venous duplex right upper extremity secondary to swelling, somewhat unclear history (2) Snake bite: There has been concern of snakebite This was discussed in detail with the ER physician, who was in contact with poison control. They do not recommend any antivenom currently Continue to follow closely Tetanus shot was given in the emergency department Pain control with hydrocodone, morphine for breakthrough pain (3) Hypokalemia: Potassium has been supplemented Check magnesium Repeat potassium tomorrow (4) Alcohol abuse: [facility] protocol Monitor for withdrawal (5) Drug use: Offer outpatient rehabilitation resources (6) Dystonia: Patient reports this is chronic. This does not bother her. Continue to follow. Consider Cogentin if worsening Avoid Benadryl (7) Tobacco use disorder: Encouraged tobacco cessation (8) Hypertension: Close follow-up of blood pressures. She is not on anything on a daily basis. If blood pressures remain consistently high consider starting Plan Multiple other medical problems as outlined in past medical history Full code Lovenox for DVT prophylaxis Attestations 2 Medical Necessity Statement*: May need less than 2 midnights today for treatment of upper extremity swelling should this improve rapidly in this patient who reports snakebite. Coding Level of Care Code Acute Code for [facility] Diagnoses Cellulitis L03.90 Snake bite W59.11XA Hypokalemia E87.6 Alcohol abuse F10.10 Drug use F19.90 Dystonia G24.9 Tobacco use disorder F17.200 Hypertension I10
[2023-12-03] MEDS: vancomycin 1,250 MG/250 ML PIGGYBACK 250 MG IV (12:57)
[2023-12-03 13:24] LABS: Amphetamines Screen Urine Positive (Negative); Barbiturates Screen Urine Negative (Negative); Benzodiazepines Screen Urine Negative (Negative); Cocaine Screen Urine Positive (Negative); Opiate Screen Urine Positive (Negative); PCP Screen Urine Negative (Negative); THC Screen Urine Positive (Negative)
[2023-12-03 13:26] LABS: Urine Appearance Slightly Cloudy (CLEAR); Urine Color Yellow (Yellow)
[2023-12-03 13:27] LABS: Add Urine Microscopic? YES; Bilirubin Urine Neg (Negative); Blood Urine 3+ (Negative); Glucose Urine UA Norm (Normal); Ketones Urine 1+ (Negative); Leukocyte Esterase Urine Trace (Negative); Nitrate Urine Positive (Negative); Protein Urine 1+ (Negative); Specific Gravity, Urine 1.015 (1.005-1.030); Urobilinogen Urine 1 mg/dL (Negative); pH Urine 5 (5-7)
[2023-12-03 13:29] LABS: Add Urine Culture? Yes; Bacteria Urine 3+ /hpf; RBC Urine 0-4 /hpf (0-2)
[2023-12-03 13:37] LABS: Magnesium 1.7 mg/dL (1.7-2.3)
[2023-12-03 13:45] LABS: Reflex FDPQ test REFLEX FDP QUEST TES
[2023-12-03 13:49] LABS: Basophils # 0.1 10^3/uL (0.0-0.1); Basophils % 0.6 %; Eosinophils # 0.2 10^3/uL (0.0-0.8); Eosinophils % 2.7 %; Lymphocytes # 2.4 10^3/uL (0.8-4.8); Lymphocytes % 26.9 %; Mean Corpuscular HGB Conc 31.8 g/dL (30-55); Mean Corpuscular Hemoglobin 27.8 pg (27-33); Mean Corpuscular Volume 87.4 fl (85-98); Mean Platelet Volume 8.5 fL (7.4-10.4); Monocytes # 0.8 10^3/uL (0.2-0.9); Monocytes % 8.8 %; Neutrophils # 5.32 10^3/uL (1.8-7.7); Neutrophils % 60.8 %; Nucleated Red Blood Cells % 0 %; Platelet Count 444 10^3/cmm (157-399); Red Blood Count 4.46 10^6/uL (3.85-5.65); Red Cell Distribution Width 14.5 % (12.1-15.1); White Blood Count 8.75 10^3/uL (3.29-11.43)
[2023-12-03 14:00] LABS: INR 1.04 (0.8-1.2)
[2023-12-03 14:01] LABS: Fibrinogen 297 mg/dL (174-498); Partial Thromboplastin Time 32.3 SECONDS (23.9-36.7)
[2023-12-03 14:04] LABS: D Dimer 3.27 ug/mLFEU (0-0.59)
[2023-12-03] MEDS: gabapentin 300 mg Capsule PO ×2 (14:50→21:22)
--- NOTE | 2023-12-03 16:43 | USR_ITS ---
PROCEDURE INFORMATION: Exam: US Duplex Right Lower Extremity Veins, Limited Exam date and time: 12/03/2023 4:51 PM Age: 48 years old Clinical indication: Edema, localized; Upper extremity, right TECHNIQUE: Imaging protocol: Real-time duplex ultrasound of the right extremity with 2-D tavarez scale, color Doppler flow and spectral waveform analysis including responses to compression and other maneuvers (when performed) with image documentation. Limited exam was focused on the right lower extremity veins. COMPARISON: No relevant prior studies available. FINDINGS: Right deep veins: Unremarkable. The common femoral, femoral, proximal profunda femoral and popliteal veins are patent without thrombus. Normal Doppler waveforms. Normal compressibility and/or augmentation response. Superficial veins: Greater saphenous vein at the saphenofemoral junction is patent without thrombus. Soft tissues: Subcutaneous edema noted in the upper extremity. US/[place] [id number] IMPRESSION: No evidence of deep vein thrombosis.
[2023-12-03] MEDS: enoxaparin 40 mg/0.4 mL Syringe SUBCUT (17:38)
[2023-12-03] MEDS: sodium chloride 0.9% 1,000 ML 100 ML IV (17:41)
--- NOTE | 2023-12-03 17:59 | P.CONIM_ITS ---
Providers/Reason For Consult 2 Consulting Physician/Specialty*: Hospitalist Reason for Consult*: Rule out compartment syndrome of the right arm Attending Physician: Luis Glasgow MD Primary Care Provider: Zaire Mendoza MD History of Present Illness History of Present Illness Hamida Holcomb is a 48 year old female that states she was bit by a snake yesterday her arm is swollen. Myself in the ER she was sleeping this point stated that the pain was improving and the swelling was going down Review of Systems 2 General: Reports: 10 or more systems reviewed and unremarkable except in HPI and below Const: Denies: fever(s), chills or diaphoresis Card: Denies: chest pain Resp: Denies: dyspnea GI: Denies: abdominal pain, nausea or vomiting Neuro: Denies: headache(s) Medications/Allergies Home Medications Medication Instructions Recorded Confirmed Last Taken Type diphenhydramine HCl 25 mg capsule 25 mg PO TID 07/20/22 12/03/23 12/02/23 History (Allergy (diphenhydramine)) ondansetron HCl 4 mg tablet 4 mg PO Q8H PRN nausea and 07/20/22 12/03/23 Unknown Rx vomiting #14 tabs fluticasone propionate 50 2 spray intranasal DAILY #16 grams 09/03/23 12/03/23 12/02/23 Rx mcg/actuation nasal spray,suspension (Flonase Allergy Relief) ibuprofen 400 mg tablet 400 mg PO BID PRN pain #60 tabs 09/03/23 12/03/23 Unknown Rx clonidine HCl 0.1 mg tablet 0.1 mg PO BID PRN alcohol 09/21/23 12/03/23 Unknown Rx withdrawal #60 tabs gabapentin 300 mg capsule 300 mg PO TID #90 caps 09/21/23 12/03/23 12/03/23 Rx hydroxyzine pamoate 50 mg capsule 50 mg PO BID PRN anxiety #180 caps 09/21/23 12/03/23 12/03/23 Rx quetiapine 50 mg tablet,extended 50 mg PO .7 pm #30 tabs 09/21/23 12/03/23 12/02/23 Rx release 24 hr (Seroquel XR) trazodone 50 mg tablet 50 mg PO DIRECTED PRN insomnia 09/21/23 12/03/23 Unknown Rx #60 tabs albuterol sulfate 90 mcg/actuation 1 puff inhalation QID PRN 12/03/23 12/03/23 Unknown History aerosol inhaler (Ventolin HFA) Shortness Of Breath levocetirizine 5 mg tablet 5 mg PO DAILY 12/03/23 12/03/23 12/02/23 History naltrexone 50 mg tablet 50 mg PO QAM 12/03/23 12/03/23 Unknown History Allergies Allergy/AdvReac Type Severity Reaction Status Date / Time No Known Allergies Allergy Verified 12/03/23 08:03 Current Medications Generic Name Dose Route Start Last Admin Trade Name Freq PRN Reason Stop Dose Admin Enoxaparin Sodium 40 mg 12/03/23 16:43 12/03/23 17:38 Enoxaparin 40 Mg/0.4 Ml Syringe SUBCUT 40 mg Q24H ANNIE Administration Gabapentin 300 mg 12/03/23 15:00 12/03/23 14:50 Gabapentin 300 Mg Capsule PO 300 mg TID ANNIE Administration Vancomycin/PEG/NADA/Lysine/Water 1,250 mg in 250 mls @ 250 mls/hr 12/03/23 13:00 12/03/23 14:42 Vancocin IV Infused Q18H ANNIE Infusion Sodium Chloride 1,000 mls @ 100 mls/hr 12/03/23 16:43 12/03/23 17:41 Sodium Chloride 0.9% IV 100 mls/hr .Q10H ANNIE Administration PFSH Acute 2 PFSH: Medical History (Updated 12/03/23 @ 18:00 by Jaun Limon DO) Hypertension Generalized anxiety disorder Post-traumatic stress disorder, chronic Nicotine dependence, cigarettes, uncomplicated Seasonal allergies Alcohol use disorder, severe, dependence No pertinent family history Psychiatric care Surgical History No pertinent past surgical history Family History Brother Cancer leukemia Family/Other Cancer cervical--maternal Family/Other Cancer paternal--ovarian Other Dementia Diabetes Hyperlipidemia Hypertension Lung disease Psychiatric illness Stroke Denies family history of CAD (coronary artery disease) Clotting disorder Chronic kidney disease (CKD) Anesthesia complication Bleeding disorder Social History Smoking and tobacco/nicotine status: current every day tobacco/nicotine user cigarettes [ Other cigarette details: 1/2 PPD x 4yrs, 2/week now] Alcohol intake: current Alcohol intake frequency: few times a week Substance/Drug Use: former Lives independently: Yes Household members: significant other Housing: House Marital status: / Number of children: 3 Highest education level completed: Associate Degree: Occupational, Technical, Vocational Program service: No Current occupational status: disabled Do you think of yourself as: Straight/Heterosexual Current gender identity: Female Elli/Yazidism: Evangelical Special elli needs: No Agree to transfusion: Yes Vitals/I&O/Wt Last Vital Signs Temp 98 F 12/03/23 07:56 Pulse 84 12/03/23 17:55 Resp 19 H 12/03/23 17:55 BP 125/77 12/03/23 17:55 Pulse Ox 91 12/03/23 17:55 O2 Del Method Room Air 12/03/23 17:55 O2 Flow Rate 2 12/03/23 11:55 12/03/23 12/03/23 12/03/23 06:59 14:59 22:59 Intake Total 300 / 300 Balance 300 / 300 Weight last 48 hrs Weight 185 lb Physical Exam 2 Narrative: Patient's arm is swollen but soft. She has no pain to passive motion of her wrist. She has an abrasion over the dorsal aspect of the ulnar side of her hand does not look infected Data 12/03/23 13:41 12/03/23 08:06 Micro: Microbiology 12/03/23 08:06 Blood Culture - Preliminary Blood SPECIMEN COLLECTED 12/03/23 08:06 Blood Culture - Preliminary Blood SPECIMEN COLLECTED A&P Assessment and plan (1) Swollen arm: Will continue to monitor at this point she does not have a compartment syndrome Consult Attestations 2 Medical Necessity Statement: Per primary service Coding Level of Care Code Acute Code for Chg Fwd Diagnoses Swollen arm M79.89
[2023-12-03] MEDS: quetiapine XR (24HR) 50 mg Tablet PO (21:22)
[2023-12-03] MEDS: HYDROcodone-acetaminophen 5-325 mg Tablet 1 TAB PO (21:22)
[2023-12-04] VITALS (28 sets, daily range): BP systolic 113–135; BP diastolic 69–82; PULSE 69–84; RESP 13–21; TEMP 36.4–37; O2SAT 89–95; BMI 31.7
[2023-12-04] MEDS: sodium chloride 0.9% 1,000 ML 100 ML IV ×2 (03:10→14:30)
[2023-12-04 03:14] LABS: Basophils % 0.6 %; Eosinophils # 0.3 10^3/uL (0.0-0.8); Eosinophils % 5.4 %; Hematocrit 36.4 % (36-47); Lymphocytes # 2.2 10^3/uL (0.8-4.8); Mean Corpuscular HGB Conc 32.4 g/dL (30-55); Mean Corpuscular Hemoglobin 28.4 pg (27-33); Mean Corpuscular Volume 87.7 fl (85-98); Mean Platelet Volume 8.3 fL (7.4-10.4); Monocytes # 0.6 10^3/uL (0.2-0.9); Monocytes % 10.9 %; Neutrophils # 2.04 10^3/uL (1.8-7.7); Neutrophils % 39.5 %; Nucleated Red Blood Cells % 0 %; Platelet Count 375 10^3/cmm (157-399); Red Blood Count 4.15 10^6/uL (3.85-5.65); Red Cell Distribution Width 14.7 % (12.1-15.1); White Blood Count 5.16 10^3/uL (3.29-11.43)
[2023-12-04 03:38] LABS: Alanine Aminotransferase 63 U/L (0-33); Albumin Level 3.2 g/dL (3.5-5.2); Alkaline Phosphatase 66 U/L (35-105); Anion Gap 14.7 (5-19); Aspartate Amino Transferase 67 U/L (0-32); Blood Urea Nitrogen 14 mg/dL (6-20); Carbon Dioxide 23 mmol/L (22-29); Chloride 102 mmol/L (98-107); Creatine Phosphokinase 305 U/L (26-192); Creatinine Clr Calc Pharmacy 88.1689; Globulin 3.2 g/dL (1.3-4.6); Glomerular Filtration Rate 75.9 mL/min (90-130); Glucose 145 mg/dL (65-115); Osmolality Calculated 285 mOsm/kg (285-295); Potassium 3.7 mmol/L (3.5-5.1); Sodium 136 mmol/L (136-145); Total Bilirubin 0.3 mg/dL (0.15-1.2); Total Protein 6.4 g/dL (6.6-8.7)
[2023-12-04] MEDS: HYDROcodone-acetaminophen 5-325 mg Tablet 1 TAB PO ×2 (04:13→18:32)
[2023-12-04] MEDS: LORazepam 2 mg/mL INJ 1 mL IVP (04:13)
--- NOTE | 2023-12-04 04:22 | PC.NURSE ---
Right arm measures 28cm at middle forearm. Nonpitting edema present, skin from hand to upper arm is taught.
--- NOTE | 2023-12-04 06:56 | P.PN_ITS ---
Subjective 2 Subjective: Patient stable I walked in the room. Patient's arm she stated that the arm is feeling better Vitals/I&O/Wt Last Vital Signs Temp 97.7 F 12/04/23 04:35 Pulse 74 12/04/23 04:35 Resp 16 12/04/23 04:35 BP 132/70 12/04/23 04:35 Pulse Ox 92 12/04/23 04:35 O2 Del Method Room Air 12/04/23 04:35 O2 Flow Rate 2 12/03/23 11:55 12/03/23 12/03/23 12/04/23 14:59 22:59 06:59 Intake Total 300 / 300 1240 / 1540 Balance 300 / 300 1240 / 1540 Weight last 48 hrs Weight 185 lb Weight 185 lb Weight 185 lb Physical Exam 2 Narrative: Continued swelling no evidence of any compartment syndrome. Data 12/04/23 03:11 12/04/23 03:11 Micro: Microbiology 12/03/23 08:06 Blood Culture - Preliminary Blood SPECIMEN COLLECTED 12/03/23 08:06 Blood Culture - Preliminary Blood SPECIMEN COLLECTED A&P Assessment and plan (1) Swollen arm: No evidence of any compartment syndrome Attestations 2 Medical Necessity Statement*: Per primary service Coding Level of Care Code Acute Code for Chg Fwd Diagnoses Swollen arm M79.89
[2023-12-04] MEDS: folic acid 1 mg Tablet PO (08:07)
[2023-12-04] MEDS: thiamine 100 mg Tablet PO (08:08)
[2023-12-04] MEDS: gabapentin 300 mg Capsule PO ×3 (08:08→20:03)
[2023-12-04] MEDS: multivitamin therapeutic Tablet 1 TAB PO (08:08)
[2023-12-04] MEDS: vancomycin 1,250 MG/250 ML PIGGYBACK 250 MG IV (08:09)
--- NOTE | 2023-12-04 09:08 | PC.CHAP ---
Pastoral Care Encounter/Spiritual Assessment Type of Contact [] Declined grinding wheel dresser visit [] Patient/Family/Request visit [] Outpatient visit [] Follow-up visit [] Physician referral [] Code/Alert [] Routine visit [] Staff referral [] Actively dying [X] Patient sleeping [] Family support [] [] Out of room [] Palliative care [] [] Receiving care in room [] Pre-surgical visit [] Trauma [] Long length of stay [] ICU visit [] Other: Relational/Emotional Strength [] Patient feels connected with others/family/visitors/staff [] Distress [] Loneliness/isolation [] Abandonment Spirituality of Patient [] Person of Elli [] Attends Rastafarian of their Elli [] Believes in Prayer [] Reads Bible or Yarsanism materials [] There are Spiritual issues to be addressed [employer] Interventions [] Prayer [] Active listening [] Non-anxious presence [] Spiritual/emotional support [] Crisis/trauma care [] Spiritual counseling [] Bereavement support [] Provided bereavement packet [] Provided Bible/devotional materials [] Provided toy/stuffed animal, coloring book to patient or family member [] Provided Communion [] Anointing/[place] [] Salvation [] Completed spiritual assessment [] Other: Impact on Illness or Injury [] Angry [] Fearful [] Anxious [] Often cries [] Exhaustion [] Unable to work [] Unable to attend yarsanism [] Unable to walk/stand [] Unable to read [] Unable to drive [] Unable to eat/drink [] Unable to sleep [] Unable to be with family [] Patient intubated [] Other: Summary Time spent with patient
--- NOTE | 2023-12-04 12:27 | PM.PN ---
Subjective Subjective: Patient reports arm is about the same. Somewhat tender, little bit. Still moving it without much discomfort. When I went to the room she was laying on the arm. Nurses report her CIWA score has been somewhat high today. Medications: Reviewed: Yes Vitals/I&O/Wt Last Vital Signs Temp 98.1 F 12/04/23 11:40 Pulse 74 12/04/23 11:40 Resp 16 12/04/23 11:40 BP 135/82 12/04/23 11:40 Pulse Ox 93 12/04/23 11:40 O2 Del Method Room Air 12/04/23 11:40 O2 Flow Rate 2 12/03/23 11:55 12/03/23 12/04/23 12/04/23 22:59 06:59 14:59 Intake Total 1240 / 1540 250 / 250 Balance 1240 / 1540 250 / 250 Weight last 48 hrs Weight 83.915 kg Weight 83.915 kg Weight 83.915 kg Physical Exam Narrative: General exam no distress Neck is supple no lymphadenopathy thyromegaly Cardiovascular regular rate and rhythm, without murmur Lungs clear no wheezing or crackles Abdomen is soft nontender with positive bowel sounds. No obvious organomegaly Extremities no cyanosis or clubbing. Right hand with the hand and arm is swollen up to about the elbow. Amputation of her second through fifth fingers slight erythema. An abrasion approximately 1.5 cm dorsal lateral hand. Possible puncture sherlyn closer to the thumb area where she indicates the most pain. Cap refill is intact. She moves at all joints. Radial pulse intact. She still moves the arm at all joints. Distal cap refill is intact as it was yesterday. Edema is no better. Data 12/04/23 03:11 12/04/23 03:11 Micro: Microbiology 12/03/23 12:45 Urine Culture - Preliminary Urine,Clean Catch Gram Negative Rods 12/03/23 08:06 Blood Culture - Preliminary Blood NEGATIVE TO DATE 12/03/23 08:06 Blood Culture - Preliminary Blood NEGATIVE TO DATE A&P Assessment and plan (1) Cellulitis: Concern of cellulitis right upper extremity. Patient is confident that she was bitten by a snake. History was in question secondary to lack of clear puncture wounds and other comorbidities. Blood culture has been obtained which is appropriate. It is negative to date Orthopedics consult to follow along for concern of development of compartment syndrome in the future. Appreciate their opinion Repeat CK is decreasing Continue vancomycin IV, dose adjustments per pharmacy as well as trough levels and close follow-up of creatinine Venous duplex negative (2) Snake bite: There has been concern of snakebite This was discussed in detail with the ER physician, who was in contact with poison control. They do not recommend any antivenom currently Continue to follow closely Tetanus shot was given in the emergency department Pain control with hydrocodone, morphine for breakthrough pain Swelling has not yet improved (3) Hypokalemia: Potassium normal after supplementation (4) Alcohol abuse: [facility] protocol Monitor for withdrawal (5) Drug use: Offer outpatient rehabilitation resources (6) Dystonia: Patient reports this is chronic. This does not bother her. Continue to follow. Consider Cogentin if worsening Avoid Benadryl This appears improved (7) Tobacco use disorder: Encouraged tobacco cessation (8) Hypertension: Blood pressures are improved Plan Urine growing gram-negative rods. Add Rocephin. Multiple other medical problems as outlined in past medical history Full code Lovenox for DVT prophylaxis Attestations Medical Necessity Statement*: Needs continued hospital stay, for IV antibiotics secondary to cellulitis versus snakebite with significant edema not yet improved and High MDM includes number and complexity of problems actively addressed during encounter and amount and/or complexity of data reviewed/ordered as documented Diagnoses Cellulitis L03.90 Snake bite W59.11XA Hypokalemia E87.6 Alcohol abuse F10.10 Drug use F19.90 Dystonia G24.9 Tobacco use disorder F17.200 Hypertension I10 Time Spent (min) 22
[2023-12-04] MEDS: cefTRIAXone 1,000 mg SDV 1000 MG IVP (14:30)
[2023-12-04] MEDS: quetiapine XR (24HR) 50 mg Tablet PO (18:18)
[2023-12-04] MEDS: enoxaparin 40 mg/0.4 mL Syringe SUBCUT (18:18)
[2023-12-05 00:12] VITALS: BP 125/73; PULSE 74; RESP 16; TEMP 37.2; O2SAT 93
[2023-12-05] MEDS: vancomycin 1,250 MG/250 ML PIGGYBACK 250 MG IV (00:28)
[2023-12-05] MEDS: sodium chloride 0.9% 1,000 ML 100 ML IV (00:28)
[2023-12-05 04:42] VITALS: BP 117/75; PULSE 75; RESP 18; TEMP 37; O2SAT 94
[2023-12-05 05:41] LABS: Basophils % 0.5 %; Eosinophils # 0.3 10^3/uL (0.0-0.8); Eosinophils % 4.3 %; Hematocrit 34.6 % (36-47); Lymphocytes # 2.1 10^3/uL (0.8-4.8); Lymphocytes % 35.5 %; Mean Corpuscular HGB Conc 31.8 g/dL (30-55); Mean Corpuscular Hemoglobin 28.5 pg (27-33); Mean Corpuscular Volume 89.6 fl (85-98); Mean Platelet Volume 8.2 fL (7.4-10.4); Monocytes # 0.6 10^3/uL (0.2-0.9); Monocytes % 9.6 %; Neutrophils # 2.89 10^3/uL (1.8-7.7); Neutrophils % 49.8 %; Nucleated Red Blood Cells % 0 %; Platelet Count 360 10^3/cmm (157-399); Red Blood Count 3.86 10^6/uL (3.85-5.65); Red Cell Distribution Width 14.6 % (12.1-15.1); White Blood Count 5.81 10^3/uL (3.29-11.43)
[2023-12-05 06:01] LABS: Alanine Aminotransferase 50 U/L (0-33); Alkaline Phosphatase 66 U/L (35-105); Anion Gap 14.6 (5-19); Aspartate Amino Transferase 46 U/L (0-32); Blood Urea Nitrogen 6 mg/dL (6-20); Carbon Dioxide 21 mmol/L (22-29); Chloride 105 mmol/L (98-107); Creatine Phosphokinase 99 U/L (26-192); Creatinine Clr Calc Pharmacy 104.3478; Glomerular Filtration Rate 88.6 mL/min (90-130); Glucose 129 mg/dL (65-115); Magnesium 1.4 mg/dL (1.7-2.3); Osmolality Calculated 283 mOsm/kg (285-295); Potassium 3.6 mmol/L (3.5-5.1); Sodium 137 mmol/L (136-145); Total Bilirubin 0.2 mg/dL (0.15-1.2)
[2023-12-05 07:30] VITALS: BP 153/91; PULSE 80; RESP 16; TEMP 36.9; O2SAT 92
[2023-12-05] MEDS: folic acid 1 mg Tablet PO (08:51)
[2023-12-05] MEDS: thiamine 100 mg Tablet PO (08:51)
[2023-12-05] MEDS: multivitamin therapeutic Tablet 1 TAB PO (08:51)
[2023-12-05] MEDS: magnesium sulfate premix 2 GM/50 ML PIGGYBACK IV (08:51)
[2023-12-05] MEDS: gabapentin 300 mg Capsule PO (08:51)
--- NOTE | 2023-12-05 09:03 | PM.DCS ---
Discharge Providers Date of Admission: 12/04/23 12:31 Date of Discharge: December 05, 2023 Attending Provider at Admission: Luis Glasgow MD Attending Provider at Discharge: Luis Glasgow MD Primary Care Provider: Zaire Mendoza MD Diagnoses at Discharge Discharge Diagnosis (1) Cellulitis: Status: Acute (2) Snake bite: Status: Acute (3) Hypokalemia: Status: Acute (4) Alcohol abuse: Status: Acute (5) Drug use: Status: Acute (6) Dystonia: Status: Acute (7) Tobacco use disorder: Status: Acute (8) Hypertension: Status: Acute Reason for Visit Reason for Visit: snake bite, swelling Hospital Course Hospital Course Zelda is a 48-year-old female who presented with a swollen arm. She was under the influence of alcohol and drug when she arrived. She was concerned that she had been bitten by a snake. It was difficult to tell from area of hand if she had significant puncture sanches from a snake. Poison control was notified, and they did not recommend antivenom. She was placed on IV antibiotics and the arm was closely followed. It remained swollen during her hospital stay, but was less swollen at time of discharge. She had good capillary refill, was moving all joints. Orthopedic surgery had seen her and did not believe she had evidence of compartment syndrome. With significant improvement, patient wishing to go home on 12/04, no fever or white count she was discharged to finish a course of doxycycline. She will also take Ceftin for 3 days for UTI discovered while inpatient. She was given an opportunity to ask questions, and agreed with the plan. She was instructed to return for any worsening immediately. While in the hospital a CTA of the arm was performed which demonstrated no occlusion and a venous duplex demonstrating no DVT. Physical Exam Narrative: General exam no distress Neck is supple Cardiovascular regular rate and rhythm Lungs clear Abdomen soft Right upper extremity with edema. Cap refill distally intact. Moves at all joints. Excellent distal pulses. Swelling is slightly less than yesterday. No erythema. Discharge Data Studies Completed and Pending Completed Studies During Hospitalization Category Date Time Status CT angio upper extremity right [[place] [id number]] Cat Scan 12/03/23 10:19 Completed Stat US venous duplex upper extremity RT [CV venous duplex Ultrasound 12/03/23 16:43 [place] [id number]] Routine Pending at discharge Category Date Time Status Blood Culture Stat Lab 12/03/23 08:06 Results Fibrinogen Degradation Product Routine Lab 12/03/23 13:45 Received MRSA [Methicillin Resistant S.aureu] Routine Lab 12/03/23 21:27 Received Urine Culture Stat Lab 12/03/23 12:45 Results Vancomycin Trough Timed Lab 12/05/23 18:00 Ordered Radiology Impressions Upper Extremity CTA 12/03/23 10:19 IMPRESSION: 1. Diffuse cellulitis extending from the upper arm involving the forearm extending into the hand and distal phalanges. 2. Inflammatory stranding and edema extends into the deep intramuscular soft tissues in the upper arm, forearm, and hand. Patient at risk for compartment syndrome. Edema worse in the forearm and dorsal phalanges. 3. No evidence of drainable abscess or fluid collection. 4. Vessels appear patent. Venous Duplex 12/03/23 16:43 IMPRESSION: No evidence of deep vein thrombosis. Laboratory Results WBC 5.81 10^3/uL (3.29-11.43) 12/05/23 05:32 RBC 3.86 10^6/uL (3.85-5.65) 12/05/23 05:32 Hgb 11.00 g/dL (11.27-16.99) L 12/05/23 05:32 Hct 34.6 % (36-47) L 12/05/23 05:32 MCV 89.6 fl (85-98) 12/05/23 05:32 MCH 28.5 pg (27-33) 12/05/23 05:32 MCHC 31.8 g/dL (30-55) 12/05/23 05:32 RDW 14.6 % (12.1-15.1) 12/05/23 05:32 Plt Count 360 10^3/cmm (157-399) 12/05/23 05:32 MPV 8.2 fL (7.4-10.4) 12/05/23 05:32 Neut % (Auto) 49.8 % 12/05/23 05:32 Lymph % (Auto) 35.5 % 12/05/23 05:32 [place] % (Auto) 9.6 % 12/05/23 05:32 Eos % (Auto) 4.3 % 12/05/23 05:32 Baso % (Auto) 0.5 % 12/05/23 05:32 Neut # (Auto) 2.89 10^3/uL (1.8-7.7) 12/05/23 05:32 Lymph # (Auto) 2.1 10^3/uL (0.8-4.8) 12/05/23 05:32 [place] # (Auto) 0.6 10^3/uL (0.2-0.9) 12/05/23 05:32 Eos # (Auto) 0.3 10^3/uL (0.0-0.8) 12/05/23 05:32 Baso # (Auto) 0.0 10^3/uL (0.0-0.1) 12/05/23 05:32 Nucleated RBC % (auto) 0 % 12/05/23 05:32 Nucleated RBCs # 0.0 /100WBC 12/05/23 05:32 PT 14.00 SECONDS (12.1-14.9) 12/03/23 13:41 INR 1.04 (0.8-1.2) 12/03/23 13:41 APTT 32.3 SECONDS (23.9-36.7) 12/03/23 13:41 Fibrinogen 297 mg/dL (174-498) 12/03/23 13:41 D-Dimer 3.27 ug/mLFEU (0-0.59) H 12/03/23 13:41 Sodium 137 mmol/L (136-145) 12/05/23 05:32 Potassium 3.6 mmol/L (3.5-5.1) 12/05/23 05:32 Chloride 105 mmol/L (98-107) 12/05/23 05:32 Carbon Dioxide 21 mmol/L (22-29) L 12/05/23 05:32 Anion Gap 14.6 (5-19) 12/05/23 05:32 BUN 6 mg/dL (6-20) 12/05/23 05:32 Creatinine 0.7 mg/dL (0.5-0.9) 12/05/23 05:32 GFR Calculation 88.6 mL/min (90-130) L 12/05/23 05:32 Glucose 129 mg/dL (65-115) H 12/05/23 05:32 Calculated Osmolality 283 mOsm/kg (285-295) L 12/05/23 05:32 Lactic Acid 2.2 mmol/L (0.5-2.2) 12/03/23 08:06 Lactic Acid (Sepsis) 1.1 mmol/L (0.5-2.2) 12/03/23 11:30 Calcium 8.0 mg/dL (8.5-10.5) L 12/05/23 05:32 Magnesium 1.4 mg/dL (1.7-2.3) L 12/05/23 05:32 Total Bilirubin 0.2 mg/dL (0.15-1.2) 12/05/23 05:32 AST 46 U/L (0-32) H 12/05/23 05:32 ALT 50 U/L (0-33) H 12/05/23 05:32 Alkaline Phosphatase 66 U/L (35-105) 12/05/23 05:32 Creatine Kinase 99 U/L (26-192) 12/05/23 05:32 Total Protein 6.0 g/dL (6.6-8.7) L 12/05/23 05:32 Albumin 3.0 g/dL (3.5-5.2) L 12/05/23 05:32 Globulin 3.0 g/dL (1.3-4.6) 12/05/23 05:32 Urine Color Yellow (Yellow) 12/03/23 12:45 Urine Appearance Slightly cloudy (CLEAR) 12/03/23 12:45 Urine pH 5 (5-7) 12/03/23 12:45 Ur Specific [place] 1.015 (1.005-1.030) 12/03/23 12:45 Urine Protein 1+ (Negative) H 12/03/23 12:45 Urine Glucose (UA) Norm (Normal) 12/03/23 12:45 Urine Ketones 1+ (Negative) H 12/03/23 12:45 Urine Blood 3+ (Negative) H 12/03/23 12:45 Urine Nitrate Positive (Negative) A 12/03/23 12:45 Urine Bilirubin Neg (Negative) 12/03/23 12:45 Urine Urobilinogen 1 mg/dL (Negative) H 12/03/23 12:45 Ur Leukocyte Esterase Trace (Negative) H 12/03/23 12:45 Urine RBC 0-4 /hpf (0-2) H 12/03/23 12:45 Urine WBC 5-10 /hpf (0-5) H 12/03/23 12:45 Ur Squamous Epith Cells 5-10 /hpf (0-5) H 12/03/23 12:45 Amorphous Sediment Not Reportable 12/03/23 12:45 Urine Bacteria 3+ /hpf (NONE) H 12/03/23 12:45 Urine Opiates Screen Positive ng/mL (Negative) H 12/03/23 12:45 Ur Barbiturates Screen Negative ng/mL (Negative) 12/03/23 12:45 Ur Phencyclidine Scrn Negative ng/mL (Negative) 12/03/23 12:45 Ur Amphetamines Screen Positive ng/mL (Negative) H 12/03/23 12:45 U Benzodiazepines Scrn Negative ng/mL (Negative) 12/03/23 12:45 Urine Cocaine Screen Positive ng/mL (Negative) H 12/03/23 12:45 U Marijuana (THC) Screen Positive ng/mL (Negative) H 12/03/23 12:45 Ethyl Alcohol 25 mg/dL (0-10) H 12/03/23 08:06 Vitals Last Vital Signs Temp 98.5 F 12/05/23 07:30 Pulse 80 12/05/23 07:30 Resp 16 12/05/23 07:30 BP 153/91 12/05/23 07:30 Pulse Ox 92 12/05/23 07:30 O2 Del Method Room Air 12/05/23 07:30 O2 Flow Rate 2 12/03/23 11:55 Discharge Plan Discharge Patient Disposition: Home Condition: Stable Prescriptions: New cefdinir 300 mg capsule 300 mg PO BID 3 Days Qty: 6 0RF doxycycline hyclate 100 mg tablet 100 mg PO BID 7 Days Qty: 14 0RF Continued diphenhydramine HCl [Allergy (diphenhydramine)] 25 mg capsule 25 mg PO TID ondansetron HCl 4 mg tablet 4 mg PO Q8H PRN (Reason: nausea and vomiting) Qty: 14 0RF ibuprofen 400 mg tablet 400 mg PO BID PRN (Reason: pain) Qty: 60 0RF fluticasone propionate [Flonase Allergy Relief] 50 mcg/actuation spray,suspension 2 spray intranasal DAILY Qty: 16 0RF Rx Instructions: administer into each nostril clonidine HCl 0.1 mg tablet 0.1 mg PO BID PRN (Reason: alcohol withdrawal) Qty: 60 3RF gabapentin 300 mg capsule 300 mg PO TID Qty: 90 2RF hydroxyzine pamoate 50 mg capsule 50 mg PO BID PRN (Reason: anxiety) Qty: 180 2RF quetiapine [Seroquel XR] 50 mg tablet extended release 24 hr 50 mg PO .7 pm Qty: 30 3RF Rx Instructions: Take one tablet at 7 pm trazodone 50 mg tablet 50 mg PO DIRECTED PRN (Reason: insomnia) Qty: 60 4RF Rx Instructions: May take one tablet 30-60 min prior to bedtime as needed for sleep; May repeat if needed. naltrexone 50 mg tablet 50 mg PO QAM Ventolin HFA 90 mcg/actuation HFA aerosol inhaler 1 puff inhalation QID PRN (Reason: Shortness Of Breath) levocetirizine 5 mg tablet 5 mg PO DAILY Discharge Orders: Discharge Order (Routine); Ordered 12/05/23 Ordered By: Luis Glasgow Referrals: Zaire Mendoza MD [Primary Care Provider] - 1-3 days Discharge Diet: Regular Discharge Activity: Increase activity as tolerated Patient Instructions: Opioid Safety Activity Restrictions/Additional Instructions: Elevate arm Take all medicine as prescribed Follow-up with Dr. Mendoza end of this week Return for any concerns or worsening, pain in arm, fever. Stop alcohol, drug use, tobacco Discharge Attestations Time Spent in Discharge Care*: greater than 30 min Quality Metrics Clinical Quality Measures [ No reported AMI, CVA or VTE this stay] Coding Level of Care Code 64393 Total time (in minutes) for Discharge: 39 Diagnoses Cellulitis L03.90 Snake bite W59.11XA Hypokalemia E87.6 Alcohol abuse F10.10 Drug use F19.90 Dystonia G24.9 Tobacco use disorder F17.200 Hypertension I10
--- NOTE | 2023-12-05 09:38 | PC.CHAP ---
Pastoral Care Encounter/Spiritual Assessment Type of Contact [] Declined mechanical test engineer visit [] Patient/Family/Request visit [] Outpatient visit [] Follow-up visit [] Physician referral [] Code/Alert [] Routine visit [] Staff referral [] Actively dying [x] Patient sleeping [] Family support [] [] Out of room [] Palliative care [] [] Receiving care in room [] Pre-surgical visit [] Trauma [] Long length of stay [] ICU visit [] Other: Relational/Emotional Strength [] Patient feels connected with others/family/visitors/staff [] Distress [] Loneliness/isolation [] Abandonment Spirituality of Patient [] Person of Elli [] Attends Restorationist of their Elli [] Believes in Prayer [] Reads Bible or Jehovah'S Witness materials [] There are Spiritual issues to be addressed Rectifying Attendant Interventions [] Prayer [] Active listening [] Non-anxious presence [] Spiritual/emotional support [] Crisis/trauma care [] Spiritual counseling [] Bereavement support [] Provided bereavement packet [] Provided Bible/devotional materials [] Provided toy/stuffed animal, coloring book to patient or family member [] Provided Communion [] Anointing/[place] [] Salvation [] Completed spiritual assessment [] Other: Impact on Illness or Injury [] Angry [] Fearful [] Anxious [] Often cries [] Exhaustion [] Unable to work [] Unable to attend denominational [] Unable to walk/stand [] Unable to read [] Unable to drive [] Unable to eat/drink [] Unable to sleep [] Unable to be with family [] Patient intubated [] Other: Summary Time spent with patient
--- NOTE | 2023-12-05 10:44 | PC.NURSE ---
D/C pending ride home.
[2023-12-05 14:24] LABS: Methicillin-Resist S.aureu PCR NOT DETECTED (NOT DETECTED)
== END 2023-12-05 11:15 | disposition home or self-care (01) | DRG 603 ==
LOC: ER 13:52 → ER IP 16:48 → MEDSURG 12-04 03:06
PROVIDERS: Family Medicine; Admitting Provider Internal Medicine; Emergency Provider Internal Medicine; PCP Family Medicine; Visit Provider Internal Medicine
DX: L03.113 Cellulitis of right upper limb (principal); N39.0 Urinary tract infection, site not specified; M79.89 Other specified soft tissue disorders; Z89.021 Acquired absence of right finger(s); G24.9 Dystonia, unspecified; F10.20 Alcohol dependence, uncomplicated; F17.210 Nicotine dependence, cigarettes, uncomplicated; F43.12 Post-traumatic stress disorder, chronic; F41.1 Generalized anxiety disorder; I10 Essential (primary) hypertension; E87.6 Hypokalemia
CPT/HCPCS: 36415; 73206; 80053; 80306; 80307; 81001; 82550; 83605; 83735; 85025; 85362; 85378; 85384; 85610; 85730; 87040; 87077; 87086; 87186; 87641; 90715; 93971; 96365; 96367; 96372; 96375; 99291; G0378; J0696; J1650; J2060; J2270; J2543; J3370; J3411; J3475; J7030; Q9967

== ENCOUNTER 2024-03-19 13:01 | Inpatient (IN) | payer MEDICARE, MEDICAID, SELFPAY ==
[2024-03-19 13:02] VITALS: BP 168/97; PULSE 105; RESP 20; TEMP 36.7; O2SAT 96
--- NOTE | 2024-03-19 13:15 | ED_ITS ---
HPI - General Adult 2 General: Chief complaint: General Medical Stated complaint: FIT FOR CONFINEMENT Time Seen by Provider: 03/19/24 13:03 History of Present Illness: Patient brought in by police to have a fit for confinement performed secondary to intoxication. Patient says she drink a gallon of vodka today. Patient is alert and oriented x 4 there is no gross slurring of her words and is patient is in no acute distress. Upon waiting for the lab work to come back for the EtOH patient decided she was suicidal and told the officers that she wanted to , she wanted to hurt herself and, she just wanted to . Related Data Home Medications Medication Instructions Recorded Confirmed levocetirizine 5 mg tablet 5 mg PO DAILY 12/03/23 03/19/24 ibuprofen 400 mg tablet 400 mg PO BID 03/19/24 03/19/24 Previous Rx's Medication Instructions Recorded ondansetron HCl 4 mg tablet 4 mg PO Q8H PRN nausea and 07/20/22 vomiting #14 tabs fluticasone propionate 50 2 spray intranasal DAILY #16 grams 09/03/23 mcg/actuation nasal spray,suspension (Flonase Allergy Relief) clonidine HCl 0.1 mg tablet 0.1 mg PO BID PRN alcohol 02/11/24 withdrawal #60 tabs gabapentin 300 mg capsule 300 mg PO TID #90 caps 02/11/24 hydroxyzine pamoate 50 mg capsule 50 mg PO BID PRN anxiety #180 caps 02/11/24 naltrexone 50 mg tablet 50 mg PO QAM #30 tabs 02/11/24 quetiapine 50 mg tablet,extended 50 mg PO .7 pm #30 tabs 02/11/24 release 24 hr (Seroquel XR) trazodone 50 mg tablet 50 mg PO DIRECTED PRN insomnia 02/11/24 #60 tabs albuterol sulfate 90 mcg/actuation 1 puff inhalation QID PRN 03/18/24 aerosol inhaler (Ventolin HFA) Shortness Of Breath #8 grams Allergies Allergy/AdvReac Type Severity Reaction Status Date / Time No Known Allergies Allergy Verified 12/03/23 08:03 Review of Systems 2 General: Reports: 10 or more systems reviewed and unremarkable except in HPI and below PFSH ED 2 PFSH: Medical History Hypertension Generalized anxiety disorder Post-traumatic stress disorder, chronic Nicotine dependence, cigarettes, uncomplicated Seasonal allergies Alcohol use disorder, severe, dependence No pertinent family history Psychiatric care Surgical History No pertinent past surgical history Family History Brother Cancer leukemia Family/Other Cancer cervical--maternal Family/Other Cancer paternal--ovarian Other Dementia Diabetes Hyperlipidemia Hypertension Lung disease Psychiatric illness Stroke Denies family history of CAD (coronary artery disease) Clotting disorder Chronic kidney disease (CKD) Anesthesia complication Bleeding disorder Social History Smoking and tobacco/nicotine status: current every day tobacco/nicotine user cigarettes [ Other cigarette details: 1/2 PPD x 4yrs, 2/week now] Alcohol intake: current Alcohol intake frequency: few times a week Substance/Drug Use: former Lives independently: Yes Household members: significant other Housing: House Marital status: / Number of children: 3 Highest education level completed: Associate Degree: Occupational, Technical, Vocational Program service: No Current occupational status: disabled Do you think of yourself as: Straight/Heterosexual Current gender identity: Female Elli/Adventist: Buddhism Special elli needs: No Agree to transfusion: Yes Physical Exam 2 Const: COMMON NORMALS: no acute distress, average body habitus, patient oriented x3, no limitations, healthy appearing, alert and well nourished HENMT: COMMON NORMALS: normocephalic, atraumatic, hearing grossly normal bilaterally, external ears normal, Normal external nose present and moist oral mucous membranes HEAD & SCALP: normocephalic and atraumatic NOSE: Normal external nose present EXTERNAL EAR: Yes external ears normal Neck/C-Spine: COMMON NORMALS: no JVD Chest: COMMONS NORMALS: normal inspection of the chest and normal palpation of entire chest wall Resp: COMMON NORMALS: normal respiratory effort, No retractions, No use of accessory muscles and clear to auscultation bilaterally AUSCULTATION: clear to auscultation bilaterally Cardio: COMMON NORMALS: no JVD, regular rate, regular rhythm, S1 normal heart sound present, S2 normal heart sound present, No gallops present (Cardio), No clicks present (Cardio), No murmurs present (Cardio) and No rub (Cardio) R ATE: regular rate RHYTHM: regular rhythm HEART SOUNDS: S1 normal heart sound present and S2 normal heart sound present GI: COMMON NORMALS: Normal to inspection, nondistended, normoactive bowel sounds present, Soft to palpation, non-tender, No hepatosplenomegaly present and no masses PALPATION: Yes Soft to palpation and Yes No hepatosplenomegaly present Neuro: COMMON NORMALS: patient oriented x3 SENSORIUM/ORIENTATION: Yes alert Course 2 Vital Signs: Vital signs: Vital Signs Temperature 98.0 F 03/19/24 13:02 Pulse Rate 94 03/19/24 14:06 Respiratory Rate 18 03/19/24 14:06 Blood Pressure 164/78 03/19/24 14:06 Pulse Oximetry 99 03/19/24 14:06 Oxygen Delivery Me thod Room Air 03/19/24 14:06 MDM - General Adult Medical Decision Making Discussed case with Dr. Whipple, we will admit to [facility] pending second to EtOH level Medical Records I reviewed the patient's medical records. Lab Data I reviewed the patient's lab results. 03/19/24 13:18 03/19/24 13:18 Laboratory Results WBC 8.70 10^3/uL (3.29-11.43) 03/19/24 13:18 RBC 4.64 10^6/uL (3.85-5.65) 03/19/24 13:18 Hgb 12.60 g/dL (11.27-16.99) 03/19/24 13:18 Hct 38.4 % (36-47) 03/19/24 13:18 MCV 82.8 fl (85-98) L 03/19/24 13:18 MCH 27.2 pg (27-33) 03/19/24 13:18 MCHC 32.8 g/dL (30-55) 03/19/24 13:18 RDW 16.2 % (12.1-15.1) H 03/19/24 13:18 Plt Count 437 10^3/cmm (157-399) H 03/19/24 13:18 MPV 8.5 fL (7.4-10.4) 03/19/24 13:18 Neut % (Auto) 40.5 % 03/19/24 13:18 Lymph % (Auto) 52.8 % 03/19/24 13:18 [place] % (Auto) 3.7 % 03/19/24 13:18 Eos % (Auto) 2.1 % 03/19/24 13:18 Baso % (Auto) 0.7 % 03/19/24 13:18 Neut # (Auto) 3.53 10^3/uL (1.8-7.7) 03/19/24 13:18 Lymph # (Auto) 4.6 10^3/uL (0.8-4.8) 03/19/24 13:18 [place] # (Auto) 0.3 10^3/uL (0.2-0.9) 03/19/24 13:18 Eos # (Auto) 0.2 10^3/uL (0.0-0.8) 03/19/24 13:18 Baso # (Auto) 0.1 10^3/uL (0.0-0.1) 03/19/24 13:18 Nucleated RBC % (auto) 0 % 03/19/24 13:18 Nucleated RBCs # 0.0 /100WBC 03/19/24 13:18 Sodium 142 mmol/L (136-145) 03/19/24 13:18 Potassium 3.7 mmol/L (3.5-5.1) 03/19/24 13:18 Chloride 103 mmol/L (98-107) 03/19/24 13:18 Carbon Dioxide 23 mmol/L (22-29) 03/19/24 13:18 Anion Gap 19.7 (5-19) H 03/19/24 13:18 BUN 15 mg/dL (6-20) 03/19/24 13:18 Creatinine 0.9 mg/dL (0.5-0.9) 03/19/24 13:18 GFR Calculation 66.3 mL/min (90-130) L 03/19/24 13:18 Glucose 102 mg/dL (65-115) 03/19/24 13:18 Calculated Osmolality 295 mOsm/kg (285-295) 03/19/24 13:18 Calcium 8.3 mg/dL (8.5-10.5) L 03/19/24 13:18 Total Bilirubin 0.3 mg/dL (0.15-1.2) 03/19/24 13:18 AST 19 U/L (0-32) 03/19/24 13:18 ALT 16 U/L (0-33) 03/19/24 13:18 Alkaline Phosphatase 78 U/L (35-105) 03/19/24 13:18 Total Protein 7.5 g/dL (6.6-8.7) 03/19/24 13:18 Albumin 4.3 g/dL (3.5-5.2) 03/19/24 13:18 Globulin 3.2 g/dL (1.3-4.6) 03/19/24 13:18 HCG, Qual Negative (Negative) 03/19/24 15:10 Urine Color Yellow (Yellow) 03/19/24 15:10 Urine Appearance Cloudy (CLEAR) A 03/19/24 15:10 Urine pH 5.5 (5-7) 03/19/24 15:10 Ur Specific [place] 1.013 (1.005-1.030) 03/19/24 15:10 Urine Protein Negative (Negative) 03/19/24 15:10 Urine Glucose (UA) Negative (Normal) 03/19/24 15:10 Urine Ketones Negative (Negative) 03/19/24 15:10 Urine Blood Negative (Negative) 03/19/24 15:10 Urine Nitrate Positive (Negative) A 03/19/24 15:10 Urine Bilirubin Negative (Negative) 03/19/24 15:10 Urine Urobilinogen 0.2 mg/dL (Negative) 03/19/24 15:10 Ur Leukocyte Esterase Trace (Negative) A 03/19/24 15:10 Urine RBC 0-4 /hpf (0-2) H 03/19/24 15:10 Urine WBC 15-25 /hpf (0-5) H 03/19/24 15:10 Ur Squamous Epith Cells 10-15 /hpf (0-5) H 03/19/24 15:10 Amorphous Sediment Not Reportable 03/19/24 15:10 Urine Bacteria 2+ /hpf (NONE) H 03/19/24 15:10 Urine Mucus Trace /hpf 03/19/24 15:10 Salicylates < 0.3 mg/dL (3-10) L 03/19/24 13:18 Urine Opiates Screen Negative ng/mL (Negative) 03/19/24 15:10 Acetaminophen < 5.0 ug/mL (10-30) L 03/19/24 13:18 Ur Barbiturates Screen Negative ng/mL (Negative) 03/19/24 15:10 Ur Phencyclidine Scrn Negative ng/mL (Negative) 03/19/24 15:10 Ur Amphetamines Screen Negative ng/mL (Negative) 03/19/24 15:10 U Benzodiazepines Scrn Negative ng/mL (Negative) 03/19/24 15:10 Urine Cocaine Screen Negative ng/mL (Negative) 03/19/24 15:10 U Marijuana (THC) Screen Positive ng/mL (Negative) H 03/19/24 15:10 Ethyl Alcohol 366 mg/dL (0-10) H* 03/19/24 13:18 All radiology interpretation(s) finalized by discharge Discharge Plan Discharge Patient Disposition: Admitted As Inpatient Clinical Impression: Suicidal ideation, Alcohol use disorder, severe, dependence Alcohol intoxication Qualifiers: Complication of substance-induced condition: uncomplicated Qualified Code(s): F 10.920 - Alcohol use, unspecified with intoxication, uncomplicated Condition: Stable Coding Level of Care Code ED Pediatric Dermatologist for Nessa Harden
--- NOTE | 2024-03-19 13:37 | PC.NURSE ---
[place] pd officer tells me that patient just told him she wants to kill herself. Officer asking for affidavit to complete for 96hr hold. Officer informed me that it is on body cam. Dr augustine has been notified of this statement and charge nurse notified that sitter is needed.
[2024-03-19 13:43] LABS: Alcohol Level 366 mg/dL (0-10)
[2024-03-19 14:06] VITALS: BP 164/78; PULSE 94; RESP 18; O2SAT 99
--- NOTE | 2024-03-19 14:08 | PC.NURSE ---
Patients belongings removed and pt placed in green scrubs. Sitter at doorway.
[2024-03-19 14:15] LABS: Basophils # 0.1 10^3/uL (0.0-0.1); Basophils % 0.7 %; Eosinophils # 0.2 10^3/uL (0.0-0.8); Eosinophils % 2.1 %; Hematocrit 38.4 % (36-47); Lymphocytes # 4.6 10^3/uL (0.8-4.8); Lymphocytes % 52.8 %; Mean Corpuscular HGB Conc 32.8 g/dL (30-55); Mean Corpuscular Hemoglobin 27.2 pg (27-33); Mean Corpuscular Volume 82.8 fl (85-98); Mean Platelet Volume 8.5 fL (7.4-10.4); Monocytes # 0.3 10^3/uL (0.2-0.9); Monocytes % 3.7 %; Neutrophils # 3.53 10^3/uL (1.8-7.7); Neutrophils % 40.5 %; Nucleated Red Blood Cells % 0 %; Platelet Count 437 10^3/cmm (157-399); Red Blood Count 4.64 10^6/uL (3.85-5.65); Red Cell Distribution Width 16.2 % (12.1-15.1)
[2024-03-19 14:29] LABS: Alanine Aminotransferase 16 U/L (0-33); Albumin Level 4.3 g/dL (3.5-5.2); Alkaline Phosphatase 78 U/L (35-105); Anion Gap 19.7 (5-19); Aspartate Amino Transferase 19 U/L (0-32); Blood Urea Nitrogen 15 mg/dL (6-20); Calcium 8.3 mg/dL (8.5-10.5); Carbon Dioxide 23 mmol/L (22-29); Chloride 103 mmol/L (98-107); Creatinine Clr Calc Pharmacy 80.9427; Globulin 3.2 g/dL (1.3-4.6); Glomerular Filtration Rate 66.3 mL/min (90-130); Glucose 102 mg/dL (65-115); Osmolality Calculated 295 mOsm/kg (285-295); Potassium 3.7 mmol/L (3.5-5.1); Salicylate < 0.3 mg/dL (3-10); Sodium 142 mmol/L (136-145); Total Bilirubin 0.3 mg/dL (0.15-1.2); Total Protein 7.5 g/dL (6.6-8.7)
[2024-03-19 14:30] LABS: Acetaminophen < 5.0 ug/mL (10-30)
--- NOTE | 2024-03-19 14:34 | PC.NURSE ---
96 hour hold rights read and reviewed with patient. Pedro from security present during reading of rights. Patient verbalized understandings and copy of rights given to patient.
[2024-03-19 15:15] LABS: HCG Qualitative Urine. Negative (Negative)
[2024-03-19 15:18] LABS: Bilirubin Urine Negative (Negative); Blood Urine Negative (Negative); Glucose Urine UA Negative (Normal); Ketones Urine Negative (Negative); Leukocyte Esterase Urine Trace (Negative); Nitrate Urine Positive (Negative); Protein Urine Negative (Negative); Specific Gravity, Urine 1.013 (1.005-1.030); Urine Appearance Cloudy (CLEAR); Urine Color Yellow (Yellow); Urobilinogen Urine 0.2 mg/dL (Negative); pH Urine 5.5 (5-7)
[2024-03-19 15:25] LABS: Amphetamines Screen Urine Negative (Negative); Barbiturates Screen Urine Negative (Negative); Benzodiazepines Screen Urine Negative (Negative); Cocaine Screen Urine Negative (Negative); Opiate Screen Urine Negative (Negative); PCP Screen Urine Negative (Negative); THC Screen Urine Positive (Negative)
[2024-03-19 15:28] LABS: UA Manual Slide Review YES; UA Slide Review UA Slide Review Perf
[2024-03-19 15:29] LABS: Add Urine Culture? Yes; Add Urine Microscopic? YES; Bacteria Urine 2+ /hpf; Mucus Urine TRACE /hpf; RBC Urine 0-4 /hpf (0-2); WBC Urine 15-25 /hpf (0-5)
[2024-03-19 15:55] LABS: Alcohol Level 314 mg/dL (0-10)
[2024-03-19] MEDS: ciprofloxacin 500 mg Tablet PO (17:00)
[2024-03-19] MEDS: ondansetron 4 MG Tablet PO ×2 (17:00→18:39)
--- NOTE | 2024-03-19 17:02 | PC.NURSE ---
Patient c/o nausea and states that she is going through withdrawal for vodka. Dr Daley notified and given zofran. When back in room to give meds patient states, I don't really want to kill myself. I just didn't want to go to [facility] . Provider notified.
[2024-03-19 17:41] VITALS: BP 128/79; PULSE 109; RESP 16; O2SAT 98
[2024-03-19] MEDS: LORazepam 2 mg Tablet PO (18:39)
--- NOTE | 2024-03-19 18:58 | PC.NURSE ---
PT WAS BROUGHT THE EMERGENCY DEPARTMENT VIA POLICE AFTER GETTING INTO AN ALTERCATION WITH HER NEIGHBOR. PT STATED TO THE POLICE THAT SHE WAS SUICIDAL. UPON ADMIT THE NPU PT TOLD MULTIPLE STAFF MEMBERS INCLUDING THIS NURSE I JUST TOLD THEM I WAS SUICIDAL BECAUSE I DIDN'T WANT TO GO TO PRISON. PT STATED TO THIS NURSE I FIGURED THAT THIS PLACE WOULD BE BETTER THAN PRISON BECAUSE I HAVE NEVER BEEN TO PRISON. PT WAS COOPERATIVE WITH ASSESSMENT. PT APPEARS TO BE IN A GOOD MOOD AND STILL INTOXICATED. PT STATES THAT WAS SOBER FOR 20 DAYS AND DRANK TODAY . PT CURRENT NEEDS ARE MET AT THIS TIME.
[2024-03-19 20:14] VITALS: BP 133/63; PULSE 101; RESP 18; TEMP 37.1; O2SAT 96
[2024-03-19] MEDS: acetaminophen 325 mg Tablet 650 MG PO (21:10)
[2024-03-19] MEDS: gabapentin 300 mg Capsule PO (21:10)
[2024-03-20] VITALS (8 sets, daily range): BP systolic 111–144; BP diastolic 60–90; PULSE 66–90; RESP 16–18; TEMP 36.6–37.3; O2SAT 96–100
[2024-03-20] MEDS: folic acid 1 mg Tablet PO (08:07)
[2024-03-20] MEDS: thiamine 100 mg Tablet PO (08:07)
[2024-03-20] MEDS: cloNIDine 0.1 mg Tablet PO (08:07)
[2024-03-20] MEDS: gabapentin 300 mg Capsule PO ×3 (08:07→22:00)
[2024-03-20] MEDS: multivitamin therapeutic Tablet 1 TAB PO (08:07)
[2024-03-20] MEDS: naltrexone hcl 50 mg Tablet PO (08:07)
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
[2024-03-20] MEDS: acetaminophen 325 mg Tablet 650 MG PO ×3 (11:28→23:11)
[2024-03-20] MEDS: fluoxetine 10 mg Capsule PO (11:29)
[2024-03-20] MEDS: nicotine 2 mg Gum BUCCAL (15:56)
[2024-03-20] MEDS: hyDROXYzine 25 mg Capsule 50 MG PO ×2 (16:00→22:00)
[2024-03-20] MEDS: nicotine 4 mg lozenge MUCOUS MEM (22:00)
[2024-03-20] MEDS: quetiapine XR (24HR) 50 mg Tablet PO (22:00)
[2024-03-20] MEDS: trazodone 50 mg Tablet PO (22:00)
[2024-03-20] MEDS: ondansetron 4 MG Tablet PO (23:13)
[2024-03-21] MEDS: trazodone 50 mg Tablet PO ×2 (00:02→21:26)
[2024-03-21] MEDS: ibuprofen 600 mg Tablet PO ×2 (00:02→16:33)
[2024-03-21 03:52] VITALS: BP 98/62; PULSE 72; RESP 16; TEMP 36.7; O2SAT 95
[2024-03-21 07:43] VITALS: BP 119/79; PULSE 76; RESP 18; TEMP 36.6; O2SAT 95
[2024-03-21] MEDS: gabapentin 300 mg Capsule PO ×3 (08:24→21:24)
[2024-03-21] MEDS: fluoxetine 10 mg Capsule PO (08:24)
[2024-03-21] MEDS: thiamine 100 mg Tablet PO (08:24)
[2024-03-21] MEDS: folic acid 1 mg Tablet PO (08:24)
[2024-03-21] MEDS: naltrexone hcl 50 mg Tablet PO (08:24)
[2024-03-21] MEDS: multivitamin therapeutic Tablet 1 TAB PO (08:24)
[2024-03-21] MEDS: hyDROXYzine 25 mg Capsule 50 MG PO ×3 (08:27→21:25)
[2024-03-21] MEDS: fluticasone nasal spray 16gm Btl 2 SPRAY INTRANASAL (09:41)
[2024-03-21] MEDS: cetirizine 10 mg Tablet PO (09:41)
[2024-03-21] MEDS: nicotine 4 mg lozenge MUCOUS MEM ×2 (10:47→21:27)
[2024-03-21 11:41] VITALS: BP 106/66; PULSE 75; RESP 16; TEMP 36.7; O2SAT 98
--- NOTE | 2024-03-21 15:16 | W.PM.NPUPNS ---
Subjective NPU Subjective: Patient presented today reporting that she is doing all right. She discussed there being significant alcohol use after reporting 20 days of sobriety. She reports being connected to [facility] and being excepted in the [facility]. She presented with a blood alcohol 313 and she reports that much of her troubles came from being so intoxicated. She reports that she is not having any problems with the Prozac that was started and she denied any side effects to her medications. Mental Status Exam MSE Comments: Patient was lying in bed with a disheveled appearance intermittent eye contact with some mild distress. She was alert and oriented to person, place and time. There was no evidence of any abnormal involuntary motor movements other than a mild tremor. Her mood was described as okay. Her affect was restricted in range and mood congruent. Her thought process was linear, logical ,and goal-directed. Her thought content showed no evidence of active homicidal or suicidal ideation currently. Her speech was slurred but productive, with normal volume and rate. There was no clear evidence of delusional thinking. She did not appear to be responding to internal stimuli. Her attention span was fair. Her insight was poor. Her judgment was poor. Her impulse control was poor. . Vitals/I&O/Wt Last Vital Signs Temp 98.1 F 03/21/24 11:41 Pulse 75 03/21/24 11:41 Resp 16 03/21/24 11:41 BP 106/66 03/21/24 11:41 Pulse Ox 98 03/21/24 11:41 O2 Del Method Room Air 03/21/24 11:41 Data NPU 03/19/24 13:18 03/19/24 13:18 Micro: Microbiology 03/19/24 15:10 Urine Culture - Final Urine,Clean Catch Klebsiella pneumoniae Microbiology 03/19/24 15:10 Urine,Clean Catch Urine Culture - Final Klebsiella pneumoniae A&P Assessment and plan (1) Depressed mood: (2) Alcohol abuse: (3) Post-traumatic stress disorder, chronic: (4) Generalized anxiety disorder: (5) Suicidal ideation: (6) Alcohol intoxication: Qualifiers: Complication of substance-induced condition: uncomplicated Qualified Code(s): F10.920 - Alcohol use, unspecified with intoxication, uncomplicated (7) MDD (major depressive disorder), recurrent episode, moderate: Plan The patient is a 48-year-old white female with a history of alcohol dependence, borderline personality disorder, PTSD, and MDD admitted with suicidal ideation with patient reporting that she will be incarcerated for alleged assault of neighbor. The patient had reported desire to receive treatment for alcohol consumption. She would likely benefit from continued psychiatric hospitalization while closely monitoring for alcohol withdrawal. 1. CIWV protocol. 2. Started Prozac to target anxiety and depression. Restart outpatient medications. 3. Recommend sober living treatment at the highest level of care to which the patient is willing to commit. 4. Continue every 15 minute checks for safety. 5. Engage patient in individual group and milieu therapy. Involuntary Hold Information 96 Hour Hold: 96 Hour Involuntary Admission: Yes 96 Hour Hold Ending Date: 03/26/24 96 Hour Hold Ending Time: 14:00 Other Hold: Hold End Date: 03/26/24 Attestations U Medical Necessity Statement*: Inpatient hospitalization is medically necessary and the clinically appropriate intervention at this time. We will monitor medications and make changes as indicated. The likely length of stay is 3-4 days. Coding Level of Care Code Acute Code for [facility] Fw Diagnoses Depressed mood R45.89 Alcohol abuse F10.10 Post-traumatic stress disorder, chronic F43.12 Generalized anxiety disorder F41.1 Suicidal ideation R45.851 Alcohol intoxication F10.920 Complication of substance-induced condition: uncomplicated MDD (major depressive disorder), recurrent episode, moderate F33.1
[2024-03-21 16:00] VITALS: BP 124/84; PULSE 81; RESP 18; TEMP 36.8; O2SAT 97
[2024-03-21 20:00] VITALS: BP 142/89; PULSE 77; RESP 18; TEMP 36.8; O2SAT 99
[2024-03-21] MEDS: quetiapine XR (24HR) 50 mg Tablet PO (21:24)
[2024-03-21] MEDS: acetaminophen 325 mg Tablet 650 MG PO (21:24)
[2024-03-22] VITALS: BP 100/62; PULSE 73; RESP 16; TEMP 36.4; O2SAT 95
[2024-03-22 04:00] VITALS: BP 121/78; PULSE 69; RESP 16; TEMP 36.4; O2SAT 95
[2024-03-22 07:35] VITALS: BP 136/89; PULSE 71; RESP 16; TEMP 36.7; O2SAT 97
[2024-03-22] MEDS: fluticasone nasal spray 16gm Btl 2 SPRAY INTRANASAL (08:13)
[2024-03-22] MEDS: cetirizine 10 mg Tablet PO (08:14)
[2024-03-22] MEDS: gabapentin 300 mg Capsule PO ×3 (08:14→20:06)
[2024-03-22] MEDS: thiamine 100 mg Tablet PO (08:14)
[2024-03-22] MEDS: multivitamin therapeutic Tablet 1 TAB PO (08:14)
[2024-03-22] MEDS: fluoxetine 10 mg Capsule PO (08:14)
[2024-03-22] MEDS: naltrexone hcl 50 mg Tablet PO (08:14)
[2024-03-22] MEDS: hyDROXYzine 25 mg Capsule 50 MG PO ×3 (08:14→18:10)
[2024-03-22] MEDS: folic acid 1 mg Tablet PO (08:14)
--- NOTE | 2024-03-22 08:30 | P.NPUPN_ITS ---
Subjective NPU 2 Subjective: Patient presented today reporting that she is starting to feel better. She reports that her withdrawal has been limited to nothing secondary to not having drank for some prior to this recent use. We continue to discuss the likelihood of discharge at the beginning of the week and she is lobbying for discharge this weekend. However she was being reasonable and accepting of the fact that it likely would not happen. She reports that her family needs her support. She denied any side effects to medication. Mental Status Exam 2 MSE Comments: Patient was lying in bed with a disheveled appearance intermittent eye contact with some mild distress. She was alert and oriented to person, place and time. There was no evidence of any abnormal involuntary motor movements other than a mild tremor. Her mood was described as okay. Her affect was restricted in range and mood congruent. Her thought process was linear, logical ,and goal- directed. Her thought content showed no evidence of active homicidal or suicidal ideation currently. Her speech was slurred but productive, with normal volume and rate. There was no clear evidence of delusional thinking. She did not appear to be responding to internal stimuli. Her attention span was fair. Her insight was poor. Her judgment was poor. Her impulse control was poor. . Vitals/I&O/Wt Last Vital Signs Temp 98.1 F 03/22/24 20:39 Pulse 81 03/22/24 20:39 Resp 17 03/22/24 20:39 BP 135/87 03/22/24 20:39 Pulse Ox 97 03/22/24 20:39 O2 Del Method Room Air 03/22/24 14:00 Data NPU 03/19/24 13:18 03/19/24 13:18 A&P Assessment and plan (1) Depressed mood: (2) Alcohol abuse: (3) Post-traumatic stress disorder, chronic: (4) Generalized anxiety disorder: (5) Suicidal ideation: (6) Alcohol intoxication: Qualifiers: Complication of substance-induced condition: uncomplicated Qualified Code(s): F10.920 - Alcohol use, unspecified with intoxication, uncomplicated (7) MDD (major depressive disorder), recurrent episode, moderate: Plan The patient is a 48-year-old white female with a history of alcohol dependence, borderline personality disorder, PTSD, and MDD admitted with suicidal ideation with patient reporting that she will be incarcerated for alleged assault of neighbor. The patient had reported desire to receive treatment for alcohol consumption. She would likely benefit from continued psychiatric hospitalization while closely monitoring for alcohol withdrawal. 1. CIVA protocol. 2. Started Prozac to target anxiety and depression. Restart outpatient medications. 3. Recommend sober living treatment at the highest level of care to which the patient is willing to commit. 4. Continue every 15 minute checks for safety. 5. Engage patient in individual group and milieu therapy. Involuntary Hold Information 2 96 Hour Hold: 96 Hour Involuntary Admission: Yes 96 Hour Hold Ending Date: 03/26/24 96 Hour Hold Ending Time: 14:00 Other Hold: Hold End Date: 03/26/24 Attestations NPU 2 Medical Necessity Statement*: Inpatient hospitalization is medically necessary and the clinically appropriate intervention at this time. We will monitor medications and make changes as indicated. The likely length of stay is 2-3 days. Coding Level of Care Code Acute Code for g Fwd Diagnoses Depressed mood R45.89 Alcohol abuse F10.10 Post-traumatic stress disorder, chronic F43.12 Generalized anxiety disorder F41.1 Suicidal ideation R45.851 Alcohol intoxication F10.920 Complication of substance-induced condition: uncomplicated MDD (major depressive disorder), recurrent episode, moderate F33.1
[2024-03-22] MEDS: ibuprofen 600 mg Tablet PO ×2 (10:20→18:10)
[2024-03-22 11:41] VITALS: BP 127/85; PULSE 72; RESP 16; TEMP 36.9; O2SAT 97
[2024-03-22 14:00] VITALS: BP 145/79; PULSE 78; RESP 16; TEMP 36.8; O2SAT 98
[2024-03-22] MEDS: acetaminophen 325 mg Tablet 650 MG PO ×2 (14:06→21:32)
[2024-03-22] MEDS: nicotine 4 mg lozenge MUCOUS MEM (15:47)
[2024-03-22] MEDS: quetiapine XR (24HR) 50 mg Tablet PO (20:06)
[2024-03-22] MEDS: diphenhydrAMINE 50 mg Capsule PO (20:06)
[2024-03-22] MEDS: trazodone 50 mg Tablet PO ×2 (20:06→21:31)
[2024-03-22 20:39] VITALS: BP 135/87; PULSE 81; RESP 17; TEMP 36.7; O2SAT 97
[2024-03-23 06:00] VITALS: BP 104/77; PULSE 78; RESP 18; TEMP 36.8; O2SAT 97
[2024-03-23] MEDS: thiamine 100 mg Tablet PO (08:06)
[2024-03-23] MEDS: naltrexone hcl 50 mg Tablet PO (08:06)
[2024-03-23] MEDS: cetirizine 10 mg Tablet PO (08:06)
[2024-03-23] MEDS: multivitamin therapeutic Tablet 1 TAB PO (08:06)
[2024-03-23] MEDS: gabapentin 300 mg Capsule PO ×3 (08:06→20:08)
[2024-03-23] MEDS: folic acid 1 mg Tablet PO (08:06)
[2024-03-23] MEDS: fluoxetine 10 mg Capsule PO (08:06)
[2024-03-23] MEDS: acetaminophen 325 mg Tablet 650 MG PO ×2 (08:06→20:15)
[2024-03-23] MEDS: hyDROXYzine 25 mg Capsule 50 MG PO ×2 (08:06→13:11)
[2024-03-23] MEDS: fluticasone nasal spray 16gm Btl 2 SPRAY INTRANASAL (08:45)
[2024-03-23] MEDS: nicotine 4 mg lozenge MUCOUS MEM (10:36)
[2024-03-23 13:43] VITALS: BP 120/82; PULSE 85; RESP 16; TEMP 36.6; O2SAT 97
--- NOTE | 2024-03-23 15:08 | P.NPUPN_ITS ---
Subjective NPU 2 Subjective: Patient presented today reporting that she is continuing to feel better each day. She denied any concerns and endorsed getting significant positives out of being in the hospital. We discussed the likelihood of discharge tomorrow. She denied any side effects to medication. Mental Status Exam 2 MSE Comments: Patient was lying in bed with a disheveled appearance intermittent eye contact with some mild distress. She was alert and oriented to person, place and time. There was no evidence of any abnormal involuntary motor movements other than a mild tremor. Her mood was described as okay. Her affect was restricted in range and mood congruent. Her thought process was linear, logical ,and goal- directed. Her thought content showed no evidence of active homicidal or suicidal ideation currently. Her speech was slurred but productive, with normal volume and rate. There was no clear evidence of delusional thinking. She did not appear to be responding to internal stimuli. Her attention span was fair. Her insight was poor. Her judgment was poor. Her impulse control was poor. . Vitals/I&O/Wt Last Vital Signs Temp 98 F 03/23/24 13:43 Pulse 85 03/23/24 13:43 Resp 16 03/23/24 13:43 BP 120/82 03/23/24 13:43 Pulse Ox 97 03/23/24 13:43 O2 Del Method Room Air 03/23/24 13:43 Weight last 48 hrs Weight 83.642 kg Data NPU 03/19/24 13:18 03/19/24 13:18 A&P Assessment and plan (1) Depressed mood: (2) Alcohol abuse: (3) Post-traumatic stress disorder, chronic: (4) Generalized anxiety disorder: (5) Suicidal ideation: (6) Alcohol intoxication: Qualifiers: Complication of substance-induced condition: uncomplicated Qualified Code(s): F10.920 - Alcohol use, unspecified with intoxication, uncomplicated (7) MDD (major depressive disorder), recurrent episode, moderate: Plan The patient is a 48-year-old white female with a history of alcohol dependence, borderline personality disorder, PTSD, and MDD admitted with suicidal ideation with patient reporting that she will be incarcerated for alleged assault of neighbor. The patient had reported desire to receive treatment for alcohol consumption. She would likely benefit from continued psychiatric hospitalization while closely monitoring for alcohol withdrawal. 1. CIWA protocol. 2. Started Prozac to target anxiety and depression. Restart outpatient medications. 3. Recommend sober living treatment at the highest level of care to which the patient is willing to commit. 4. Continue every 15 minute checks for safety. 5. Engage patient in individual group and milieu therapy. Involuntary Hold Information 2 96 Hour Hold: 96 Hour Involuntary Admission: Yes 96 Hour Hold Ending Date: 03/26/24 96 Hour Hold Ending Time: 14:00 Other Hold: Hold End Date: 03/26/24 Attestations NPU 2 Medical Necessity Statement*: Inpatient hospitalization is medically necessary and the clinically appropriate intervention at this time. We will monitor medications and make changes as indicated. The likely length of stay is 1-2 days. Coding Level of Care Code Acute Code for [facility] Fwd Diagnoses Depressed mood R45.89 Alcohol abuse F10.10 Post-traumatic stress disorder, chronic F43.12 Generalized anxiety disorder F41.1 Suicidal ideation R45.851 Alcohol intoxication F10.920 Complication of substance-induced condition: uncomplicated MDD (major depressive disorder), recurrent episode, moderate F33.1
[2024-03-23] MEDS: ibuprofen 600 mg Tablet PO (16:14)
[2024-03-23] MEDS: diphenhydrAMINE 50 mg Capsule PO (20:08)
[2024-03-23] MEDS: quetiapine XR (24HR) 50 mg Tablet PO (20:08)
[2024-03-23] MEDS: trazodone 50 mg Tablet PO ×2 (20:08→21:53)
[2024-03-23 20:18] VITALS: BP 133/87; PULSE 89; RESP 18; TEMP 36.9; O2SAT 99
[2024-03-24 06:00] VITALS: BP 104/69; PULSE 76; RESP 16; TEMP 36.7; O2SAT 95
[2024-03-24] MEDS: cetirizine 10 mg Tablet PO (08:01)
[2024-03-24] MEDS: gabapentin 300 mg Capsule PO ×2 (08:01→14:10)
[2024-03-24] MEDS: nicotine 4 mg lozenge MUCOUS MEM (08:02)
[2024-03-24] MEDS: fluoxetine 10 mg Capsule PO ×2 (08:02→11:23)
[2024-03-24] MEDS: folic acid 1 mg Tablet PO (08:02)
[2024-03-24] MEDS: thiamine 100 mg Tablet PO (08:02)
[2024-03-24] MEDS: naltrexone hcl 50 mg Tablet PO (08:02)
[2024-03-24] MEDS: multivitamin therapeutic Tablet 1 TAB PO (08:02)
[2024-03-24] MEDS: fluticasone nasal spray 16gm Btl 2 SPRAY INTRANASAL (08:05)
[2024-03-24] MEDS: OLANZapine 5 mg ODT PO (09:15)
[2024-03-24] MEDS: ibuprofen 600 mg Tablet PO (09:15)
--- NOTE | 2024-03-24 10:32 | DCPLANNER ---
IMM was completed 03/24/2024 @ 1012. Pt stated she understood her rights and was given a copy of rights.
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
[2024-03-24 11:35] VITALS: BP 104/63; PULSE 88; RESP 16; TEMP 36.7; O2SAT 98
== END 2024-03-24 14:27 | disposition home or self-care (01) | DRG 885 ==
LOC: ER 15:55 → NP 16:11
PROVIDERS: Admitting Provider Psychiatry & Neurology Psychiatry; Emergency Provider Emergency Medicine; PCP Family Medicine; Visit Provider Psychiatry & Neurology Psychiatry
DX: F33.1 Major depressive disorder, recurrent, moderate (principal); R45.851 Suicidal ideations; F10.229 Alcohol dependence with intoxication, unspecified; Y90.8 Blood alcohol level of 240 mg/100 ml or more; F41.1 Generalized anxiety disorder; F43.12 Post-traumatic stress disorder, chronic; F17.210 Nicotine dependence, cigarettes, uncomplicated; I10 Essential (primary) hypertension; Z80.6 Family history of leukemia; Z80.49 Family history of malignant neoplasm of other genital organs; Z83.3 Family history of diabetes mellitus; Z82.49 Family history of ischemic heart disease and other diseases of the circulatory system; Z82.3 Family history of stroke
CPT/HCPCS: 36415; 80053; 80306; 80307; 81001; 81025; 85025; 87077; 87086; 87186; 97150; 97165; 99285; Q0162; Q0163

== ENCOUNTER → 2024-03-26 11:42 | Outpatient (BNVA) | payer OTHER, SELFPAY | PROVIDERS: PCP Family Medicine; Visit Provider Nurse Practitioner Psychiatric/Mental Health | DX: F41.1 Generalized anxiety disorder (principal); F10.20 Alcohol dependence, uncomplicated; Z79.899 Other long term (current) drug therapy | CPT/HCPCS: 80061; 83036 ==

== ENCOUNTER 2024-07-24 09:33 | Outpatient (CLI) | payer MEDICARE, MEDICAID, SELFPAY ==
[2024-06-20 10:42] VITALS: BP 142/99; BMI 30.3
--- NOTE | 2024-07-24 09:37 | MR_ITS ---
WS: [id number] MRI HEAD WITH CONTRAST WITH ATTENTION TO THE INTERNAL AUDITORY CANALS TECHNIQUE: Sagittal T1, T2 axial, T2 axial flair, axial susceptibility weighted imaging, axial diffusion weighted images, and coronal T2 images were obtained. Pre and post T1 axial and post T1 coronal images. ADC and FSPGR images. Post gadolinium images with attention to the internal auditory canals. Axial fiesta imaging. CLINICAL INFORMATION: SENSORINEURAL BILATERAL HEARING LOSS COMPARISON: None. FINDINGS: Proximal 7th and 8th cranial nerves are normal in appearance. No evidence of enhancing IAC or CP angle mass. Normal trigeminal nerve root entry zones. Normal vascular flow voids at the skull base. No extra-axial fluid collections. No evidence of mass or mass effect. Paranasal sinuses and mastoid air cells are well aerated. Mild mucosal thickening RIGHT mastoid tip. No restricted diffusion to suggest acute ischemia. No hemosiderin on the susceptibility weighted images. No abnormal gadolinium enhancement. No other suspicious findings. MR/MR iac's wo/w con* [id number] IMPRESSION: 1. No evidence of restricted diffusion to suggest acute ischemia. 2. Mild small vessel changes. Mild parenchymal volume loss. 3. No hemosiderin on the susceptibility weighted images. 4. No evidence of enhancing IAC or CP angle mass. Normal trigeminal nerve root entry zones.
[2024-07-24] MEDS: gadobenate dimeglumine 20 mL vial IV (12:07)
== END 2024-07-24 09:34 | disposition home or self-care (01) ==
PROVIDERS: PCP Family Medicine; Visit Provider Otolaryngology
DX: H90.3 Sensorineural hearing loss, bilateral (principal); R93.0 Abnormal findings on diagnostic imaging of skull and head, not elsewhere classified; H74.8X1 Other specified disorders of right middle ear and mastoid
CPT/HCPCS: 70553

== ENCOUNTER → 2024-08-26 09:19 | Outpatient (BNVA) | payer MEDICARE, MEDICAID, SELFPAY ==
[2024-06-20 10:42] VITALS: BP 142/99; BMI 30.3
== END ==
PROVIDERS: PCP Family Medicine; Visit Provider Nurse Practitioner Psychiatric/Mental Health
DX: Z79.899 Other long term (current) drug therapy (principal)
CPT/HCPCS: 80053; 80061; 80307; 83036

== ENCOUNTER → 2024-09-23 10:48 | Outpatient (BNVA) | payer SELFPAY ==
[2024-06-20 10:42] VITALS: BP 142/99; BMI 30.3
== END ==
PROVIDERS: PCP Family Medicine; Visit Provider Nurse Practitioner
DX: R11.10 Vomiting, unspecified (principal)
CPT/HCPCS: 82962

== ENCOUNTER 2025-04-08 10:20 | Outpatient (CLI) | payer BC, MEDICAID, MEDICARE, SELFPAY ==
[2024-06-20 10:42] VITALS: BP 142/99; BMI 30.3
--- NOTE | 2025-04-08 10:32 | XR_ITS ---
WS: [id number] XR chest 2V* [id number] REASON FOR EXAM: WHEEZING AND COUGH FINDINGS: Mild tortuosity and ectasia of the ascending and descending thoracic aorta with normal heart size. Calcified granulomatous disease bilaterally. Mild elevation of the right hemidiaphragm. No acute or subacute pulmonary parenchymal or pleural abnormality is identified. Minimal degenerative spondylosis in the mid and lower thoracic spine. Significant biconcave compression deformity of L1. XR/XR chest 2V* [id number] IMPRESSION: No acute chest abnormality. Significant compression deformity of L1.
== END 2025-04-08 10:21 | disposition home or self-care (01) ==
PROVIDERS: PCP Family Medicine; Visit Provider Family Medicine
DX: R06.2 Wheezing (principal); R05.8 Other specified cough; J98.9 Respiratory disorder, unspecified
CPT/HCPCS: 71046

== ENCOUNTER → 2025-04-20 13:25 | Outpatient (BNVA) | payer OTHER, SELFPAY ==
[2024-06-20 10:42] VITALS: BP 142/99; BMI 30.3
== END ==
PROVIDERS: PCP Family Medicine; Visit Provider Nurse Practitioner Psychiatric/Mental Health
DX: F41.1 Generalized anxiety disorder (principal); F33.1 Major depressive disorder, recurrent, moderate; F10.20 Alcohol dependence, uncomplicated; F12.20 Cannabis dependence, uncomplicated; Z79.899 Other long term (current) drug therapy
CPT/HCPCS: 80061; 83036